=== PATIENT | female | born 1940 | race Caucasian/White ===

== ENCOUNTER 2019-11-12 08:34 | Inpatient (IN) | payer MEDICARE ==
[2019-11-12] MEDS ORDERED: ONDANSETRON 4 MG/2 ML VIAL IVP STA (08:39)
[2019-11-12] MEDS ORDERED: SODIUM CHLORIDE 0.9% 500 ML 500 ML IV STA (08:39)
[2019-11-12 09:05] LABS: Basophils % (A) 0 %; Eosinophils # (A) 0.1 k/uL (0-0.7); Eosinophils % (A) 1 %; HGB 15.3 gm/dL (11.4-16.0); Lymphocytes # (A) 2.5 k/uL (1.0-4.8); Lymphocytes % (A) 30 %; MCH 30.7 pg (25.0-35.0); MCHC 33.2 g/dL (31.0-37.0); MCV 92.5 fL (80.0-100.0); Monocytes # (A) 0.3 k/uL (0-1.0); Monocytes % (A) 4 %; Neutrophils # (A) 5.3 k/uL (1.3-7.7); Neutrophils % (A) 63 %; Platelet Count 121 k/uL (150-450); RBC 4.97 m/uL (3.80-5.40); RDW 13.5 % (11.5-15.5); WBC 8.3 k/uL (3.8-10.6)
[2019-11-12 09:14] LABS: Albumin 4.3 g/dL (3.5-5.0); Calcium 9.1 mg/dL (8.4-10.2); Magnesium 2.1 mg/dL (1.6-2.3); Potassium 4.1 mmol/L (3.5-5.1); Total Bilirubin 0.3 mg/dL (0.2-1.3); Total Protein 6.9 g/dL (6.3-8.2)
--- NOTE | 2019-11-12 11:07 | CT ---
EXAMINATION TYPE: CT abdomen pelvis wo con DATE OF EXAM: 11/12/2019 COMPARISON: None HISTORY: Diarrhea and abdominal pain CT DLP: 393.4 mGycm Automated exposure control for dose reduction was used. TECHNIQUE: Helical acquisition of images was performed from the lung bases through the pelvis. FINDINGS: Left of intravenous and oral contrast limit evaluation of both the hollow and solid viscera . Motion artifact also limits exam. LUNG BASES: Bibasilar dependent subsegmental atelectasis. 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 Tortuosity is noted with severe atherosclerosis. LIVER/GB: Unremarkable unenhanced morphology. Gallbladder surgically absent. Some limitation given sp ray artifact at the left hepatic lobe. PANCREAS: Markedly limited given patient motion and lack of intravenous contrast. SPLEEN: No significant abnormality is seen. ADRENALS: No significant abnormality is seen. KIDNEYS: There are bilateral extrarenal pelvises with very mild prominence of the collecting systems bilaterally. No radiopaque calculus. Urinary bladder is distended containing no internal radiopaque c alculi. FREE AIR: No free air is visualized ADENOPATHY: Limited evaluation given lack of intravenous contrast. No gross greater than 1 cm short axis lymph nodes seen in the abdomen or pelvis. OSSEOUS STRUCTURES: Dextroscoliosis of the lumbar spine is seen. Advanced multilevel degenerative di sc disease of the spine and diffuse osseous demineralization. Multilevel malalignment with grade 1 an terolisthesis of L4 on L5 and minimal retrolisthesis of L1 on L2 and L2 on L3, all likely on a degene rative basis. BOWEL: Long segment bowel wall thickening of the sigmoid colon is seen. Mild pericolonic fat strandi ng. Numerous sigmoid diverticula. Pancolonic diverticulosis. Hyperdensity in the colon from ingested substance. OTHER: Tortuosity of the abdominal aorta with severe atherosclerosis. Infrarenal ectasia measuring 2. 5 cm. Right common iliac artery aneurysmal dilatation measuring 1.8 cm aneurysmal dilatation of the l eft that is mild measuring 1.6 cm. IMPRESSION: 1. ACUTE UNCOMPLICATED SIGMOID DIVERTICULITIS. COLONOSCOPY IS RECOMMENDED AFTER RESOLUTION OF SYMPTOM S TO ENSURE NO UNDERLYING MASS. 2. VERY MILD BILATERAL HYDRONEPHROSIS OF UNKNOWN ETIOLOGY. NO RADIOPAQUE OBSTRUCTING CALCULUS. 3. EXTENSIVE ATHEROSCLEROSIS OF THE ABDOMINAL AORTA AND ITS BRANCHES WITHOUT ANEURYSMAL DILATATION OF THE DESCENDING THORACIC AORTA AND COMMON ILIAC ARTERIES. 4. Extremely limited evaluation of the pancreas. Motion artifact limits the exam.
[2019-11-12 11:13] LABS: Appearance,Urine Clear (Clear); Bacteria,Urine Few /hpf; Bilirubin,Urine Negative (Negative); Blood,Urine Negative (Negative); Color,Urine Yellow; Glucose,Urine (UA) Negative (Negative); Ketones,Urine Negative (Negative); Leukocyte Esterase,Urine Moderate (Negative); Mucus,Urine Rare /hpf; Nitrite,Urine Positive (Negative); PH, Urine 6.5 (5.0-8.0); Protein,Urine 1+ (Negative); RBC,Urine <1 /hpf (0-5); Specific Gravity,Urine 1.012 (1.001-1.035); Squamous Epithelial Cell,Urine <1 /hpf (0-4); Urobilinogen,Urine <2.0 mg/dL (<2.0); WBC,Urine 20 /hpf (0-5)
[2019-11-12] MEDS ORDERED: cefTRIAXone IN SWFI 1,000 MG/10 ML SYRINGE IVP STA (11:15)
[2019-11-12] MEDS ORDERED: metroNIDAZOLE 500 MG TAB PO STA (11:16)
[2019-11-12] MEDS ORDERED: NALOXONE 0.4 MG/ML 1 ML VIAL IV PRN (11:53)
--- NOTE | 2019-11-12 11:53 | ED ---
Nausea/Vomiting/Diarrhea HPI - General Chief complaint: Nausea/Vomiting/Diarrhea Stated complaint: Diarrhea Time Seen by Provider: 11/12/19 08:35 Source: EMS Mode of arrival: EMS Limitations: no limitations - History of Present Illness Initial comments: Patient is a 78-year-old female with unknown past she presents emergency Department with reported of loose stools. EMS provided the history. They picked her up from a senior apartment after she called for report of loose stools. States that she has chronic loose stools however it has been progress skinny worse over the past day. She has had some bowel incontinence. Denies any melanic stools or hematochezia. Admits to crampy abdominal pain. No fevers or chills. She denies dysuria, hematuria or difficulty voiding. No abnormal vaginal bleeding or discharge. She has not taken any medications for her symptoms. Admits to nausea with one episode of nonbilious, nonbloody vomiting yesterday. Denies having a colonoscopy in the past. Denies any chest pain or shortness of breath. The remainder of the HPI is limited because the patient is extremely hard of hearing - Related Data Home Medications Medication Instructions Recorded Confirmed Atorvastatin [Lipitor] 20 mg PO HS 11/12/19 11/12/19 Glimepiride [Amaryl] 2 mg PO [id number] 11/12/19 11/12/19 Melatonin 3 mg PO HS 11/12/19 11/12/19 Metoprolol Tartrate [Lopressor] 100 mg PO BID 11/12/19 11/12/19 amLODIPine [Norvasc] 10 mg PO DAILY 11/12/19 11/12/19 risperiDONE 0.5 mg PO BID 11/12/19 11/12/19 risperiDONE [RisperDAL] 1 mg PO BID 11/12/19 11/12/19 Allergies Allergy/AdvReac Type Severity Reaction Status Date / Time morphine Allergy Rash/Hives Verified 11/12/19 12:29 Review of Systems ROS Statement: Those systems with pertinent positive or pertinent negative responses have been documented in the HPI. ROS Other: All systems not noted in ROS Statement are negative. Past Medical History Past Medical History: No Reported History History of Any Multi-Drug Resistant Organisms: None Reported Past Surgical History: No Surgical Hx Reported Past Psychological History: No Psychological Hx Reported Smoking Status: Current every day smoker Past Alcohol Use History: None Reported Past Drug Use History: None Reported - Past Family History Father Family Medical History: No Reported History Mother Family Medical History: No Reported History General Exam Limitations: no limitations General appearance: alert, in no apparent distress, other (hard of hearing) Head exam: Present: atraumatic, normocephalic, normal inspection Eye exam: Present: normal appearance, PERRL, EOMI. Absent: scleral icterus, conjunctival injection, periorbital swelling ENT exam: Present: normal exam, mucous membranes moist Neck exam: Present: normal inspection. Absent: tenderness, meningismus, lymphadenopathy Respiratory exam: Present: normal lung sounds bilaterally. Absent: respiratory distress, wheezes, rales, rhonchi, stridor Cardiovascular Exam: Present: regular rate, normal rhythm, normal heart sounds. Absent: systolic murmur, diastolic murmur, rubs, gallop, clicks GI/Abdominal exam: Present: soft, normal bowel sounds. Absent: distended, tenderness, guarding, rebound, rigid Extremities exam: Present: normal inspection, full ROM, normal capillary refill. Absent: tenderness, pedal edema, joint swelling, calf tenderness Back exam: Present: normal inspection Neurological exam: Present: alert, oriented X3, CN II-XII intact Psychiatric exam: Present: normal affect, normal mood Skin exam: Present: warm, dry, intact, normal color. Absent: rash Course Vital Signs 11/12/19 11/12/19 11/12/19 08:37 10:18 12:44 Temperature 97.8 F 97.8 F Pulse Rate 76 76 86 Respiratory 16 16 16 Rate Blood Pressure 179/83 152/98 112/76 O2 Sat by Pulse 98 98 99 Oximetry Medical Decision Making - Medical Decision Making Upon arrival the patient's placed into room 8. A thorough history of physical exam is performed. Provide was established. 500 bolus was provided. I would restudies were performed. Patient was sent for CT of her abdomen and pelvis without contrast because of her acute kidney injury. CBC unremarkable. CMP shows a creatinine of 1.4. Unknown patient's previous creatinine. Urinalysis is positive for nitrates. Moderate leukocyte esterase and 20 white blood cells. Fecal occult is performed and is negative. Rectal exam demonstrates no gross blood. A CT of the patient's abdomen and pelvis demonstrates acute unc omplicated sigmoid diverticulitis. Mild bilateral hydronephrosis. Extensive atherosclerosis of the abdominal aorta. I discussed results the patient. I felt the patient could go home with antibiotics. I did call her son to make sure he be able to pickle maker her prescriptions. When speaking with the son he states that his mother has been unable to take care of herself. She does not shower or eat nutritious meals. He has had a home care nurse coming in to help assist her however he states his been difficult. Patient unable to perform daily activities to the point where he now is concerned for placement of the patient. Because of this I did call discuss case with Dr. Urbano. States the patient is a risk to go home. Patient will be admitted to Dr. Urbano with Dr. Barreto and dialysis social worker consult. Patient is awaiting a bed on the floor - Lab Data Result diagrams: 11/14/19 14:25 11/14/19 14:25 Lab Results 11/12/19 11/12/19 11/12/19 Range/Units 08:52 08:52 08:52 WBC 8.3 (3.8-10.6) k/uL RBC 4.97 (3.80-5.40) m/uL Hgb 15.3 (11.4-16.0) gm/dL Hct 46.0 (34.0-46.0) % MCV 92.5 (80.0-100.0) fL MCH 30.7 (25.0-35.0) pg MCHC 33.2 (31.0-37.0) g/dL RDW 13.5 (11.5-15.5) % Plt Count 121 L (150-450) k/uL Neutrophils % 63 % Lymphocytes % 30 % Monocytes % 4 % Eosinophils % 1 % Basophils % 0 % Neutrophils # 5.3 (1.3-7.7) k/uL Lymphocytes # 2.5 (1.0-4.8) k/uL Monocytes # 0.3 (0-1.0) k/uL Eosinophils # 0.1 (0-0.7) k/uL Basophils # 0.0 (0-0.2) k/uL Sodium 141 (137-145) mmol/L Potassium 4.1 (3.5-5.1) mmol/L Chloride 111 H (98-107) mmol/L Carbon Dioxide 17 L (22-30) mmol/L Anion Gap 13 mmol/L BUN 20 H (7-17) mg/dL Creatinine 1.44 H (0.52-1.04) mg/dL Est GFR (CKD-EPI)AfAm 41 (>60 ml/min/1.73 sqM) Est GFR (CKD-EPI)NonAf 35 (>60 ml/min/1.73 sqM) Glucose 87 (74-99) mg/dL Plasma Lactic Acid Caden 1.8 (0.7-2.0) mmol/L Calcium 9.1 (8.4-10.2) mg/dL Magnesium 2.1 (1.6-2.3) mg/dL Total Bilirubin 0.3 (0.2-1.3) mg/dL AST 42 H (14-36) U/L ALT 32 (4-34) U/L Alkaline Phosphatase 76 (38-126) U/L Total Protein 6.9 (6.3-8.2) g/dL Albumin 4.3 (3.5-5.0) g/dL Lipase 252 (23-300) U/L Urine Color Urine Appearance (Clear) Urine pH (5.0-8.0) Ur Specific [place] (1.001-1.035) Urine Protein (Negative) Urine Glucose (UA) (Negative) Urine Ketones (Negative) Urine Blood (Negative) Urine Nitrite (Negative) Urine Bilirubin (Negative) Urine Urobilinogen (<2.0) mg/dL Ur Leukocyte Esterase (Negative) Urine RBC (0-5) /hpf Urine WBC (0-5) /hpf Ur Squamous Epith Cells (0-4) /hpf Urine Bacteria (None) /hpf Urine Mucus (None) /hpf 11/12/19 Range/Units 10:49 WBC (3.8-10.6) k/uL RBC (3.80-5.40) m/uL Hgb (11.4-16.0) gm/dL Hct (34.0-46.0) % MCV (80.0-100.0) fL MCH (25.0-35.0) pg MCHC (31.0-37.0) g/dL RDW (11.5-15.5) % Plt Count (150-450) k/uL Neutrophils % % Lymphocytes % % Monocytes % % Eosinophils % % Basophils % % Neutrophils # (1.3-7.7) k/uL Lymphocytes # (1.0-4.8) k/uL Monocytes # (0-1.0) k/uL Eosinophils # (0-0.7) k/uL Basophils # (0-0.2) k/uL Sodium (137-145) mmol/L Potassium (3.5-5.1) mmol/L Chloride (98-107) mmol/L Carbon Dioxide (22-30) mmol/L Anion Gap mmol/L BUN (7-17) mg/dL Creatinine (0.52-1.04) mg/dL Est GFR (CKD-EPI)AfAm (>60 ml/min/1.73 sqM) Est GFR (CKD-EPI)NonAf (>60 ml/min/1.73 sqM) Glucose (74-99) mg/dL Plasma Lactic Acid Caden (0.7-2.0) mmol/L Calcium (8.4-10.2) mg/dL Magnesium (1.6-2.3) mg/dL Total Bilirubin (0.2-1.3) mg/dL AST (14-36) U/L ALT (4-34) U/L Alkaline Phosphatase (38-126) U/L Total Protein (6.3-8.2) g/dL Albumin (3.5-5.0) g/dL Lipase (23-300) U/L Urine Color Yellow Urine Appearance Clear (Clear) Urine pH 6.5 (5.0-8.0) Ur Specific [place] 1.012 (1.001-1.035) Urine Protein 1+ H (Negative) Urine Glucose (UA) Negative (Negative) Urine Ketones Negative (Negative) Urine Blood Negative (Negative) Urine Nitrite Positive H (Negative) Urine Bilirubin Negative (Negative) Urine Urobilinogen <2.0 (<2.0) mg/dL Ur Leukocyte Esterase Moderate H (Negative) Urine RBC <1 (0-5) /hpf Urine WBC 20 H (0-5) /hpf Ur Squamous Epith Cells <1 (0-4) /hpf Urine Bacteria Few H (None) /hpf Urine Mucus Rare H (None) /hpf Disposition Clinical Impression: Acute diverticulitis, Acute UTI, Diarrhea Disposition: ADMITTED IP TO THIS HOSP Condition: Stable Is patient prescribed a controlled substance at d/c from ED?: No Decision to Admit Reason: Admit from EC Decision Date: 11/12/19 Decision Time: 11:52
[2019-11-12] MEDS: SODIUM CHLORIDE 0.9% 1,000 ML IV SCH (12:43)
[2019-11-12] MEDS: amLODIPine 10 MG TAB PO SCH (14:51)
--- NOTE | 2019-11-12 15:34 | XR ---
EXAMINATION TYPE: XR chest 2V DATE OF EXAM: 11/12/2019 COMPARISON: CT same date HISTORY: Shortness of breath TECHNIQUE: Frontal and lateral views of the chest are obtained. FINDINGS: There is no focal air space opacity, pleural effusion, or pneumothorax seen. The cardiac silhouette size is within normal limits. Patient is post median sternotomy. Prominent lung volumes c ould be indicative of underlying COPD. There is tortuosity of the descending aorta is dense. The oss eous structures are intact. There is a scoliotic curvature to the spine. IMPRESSION: No acute cardiopulmonary process.
[2019-11-12 15:46] LABS: Basophils % (A) 0 %; Eosinophils # (A) 0.1 k/uL (0-0.7); Eosinophils % (A) 1 %; HGB 14.7 gm/dL (11.4-16.0); Lymphocytes # (A) 2.7 k/uL (1.0-4.8); Lymphocytes % (A) 31 %; MCH 30.8 pg (25.0-35.0); MCHC 33.5 g/dL (31.0-37.0); MCV 91.9 fL (80.0-100.0); Mean Platelet Volume 8.5; Monocytes # (A) 0.4 k/uL (0-1.0); Monocytes % (A) 5 %; Neutrophils # (A) 5.4 k/uL (1.3-7.7); Neutrophils % (A) 62 %; Platelet Count 128 k/uL (150-450); RBC 4.79 m/uL (3.80-5.40); RDW 13.4 % (11.5-15.5); WBC 8.7 k/uL (3.8-10.6)
[2019-11-12 15:52] LABS: Albumin 3.9 g/dL (3.5-5.0); Calcium 8.8 mg/dL (8.4-10.2); Potassium 3.7 mmol/L (3.5-5.1); Total Bilirubin 0.2 mg/dL (0.2-1.3); Total Protein 6.3 g/dL (6.3-8.2)
--- NOTE | 2019-11-12 16:14 | HP ---
HISTORY AND PHYSICAL CHIEF COMPLAINT: Abdominal pain. HISTORY OF PRESENT ILLNESS: This lady probably has dementia, is extremely hard of hearing. She came to the emergency room with a history of abdominal pain and diarrhea. She apparently lives alone and probably could not manage this any longer according to family. She has been incontinent of stool. In the emergency room she had studies including white count of 8300, hematocrit of 46. Electrolytes were normal. BUN was 20 with a creatinine 1.44. The remainder of her labs were unremarkable. She had a CT the abdomen and pelvis which suggested diverticulitis and there was also a suggestion of mild hydronephrosis. She was admitted to the hospital with diagnoses of diverticulitis, urinary tract infection, mild renal failure, failure to thrive and presbycusis. REVIEW OF SYSTEMS: Difficult to obtain due to her presbycusis. She is allergic to MORPHINE. At home she has been on amlodipine, atorvastatin, glimepiride, melatonin, Toprol, and Respirtone. PHYSICAL EXAMINATION: Blood pressure 179/83, pulse 76 and regular, respirations 16 and temperature 97.8. In general she appeared to be well developed, well nourished, and slightly dehydrated. She is very hard of hearing. Head, ears, eyes, nose, mouth, and throat were normal. Carotids were normal. Chest is clear to auscultation. She had a faint grade 1/2 systolic ejection murmur. Abdomen is soft and nontender and there are no masses. Extremities were normal. Neurologically she seemed to be intact. IMPRESSION: 1. Diarrhea. 2. Diverticulitis. 3. Urinary tract infection. 4. Hypertension. 5. Mild renal failure. 6. Presbycusis. 7. General debility and failure to thrive. PLAN: 1. Bed rest. 2. IV fluids. 3. For IV antibiotics. 4. Work on discharge planning. MMODL / IJN: [id number] /
[2019-11-12] MEDS: metroNIDAZOLE-NS PMX 500 MG in SALINE 1 100ML.BAG IVPB SCH ×2 (16:52→21:15)
[2019-11-12 17:20] LABS: Glucose,Whole Blood 111 mg/dL (75-99)
[2019-11-12] MEDS: INSULIN ASPART (NovoLOG) 100 UNIT/ML VIAL SQ SCH ×2 (17:34→20:46)
[2019-11-12 20:32] LABS: Glucose,Whole Blood 73 mg/dL (75-99)
[2019-11-12] MEDS: METOPROLOL TARTRATE 50 MG TAB PO SCH (21:15)
[2019-11-13] MEDS: SODIUM CHLORIDE 0.9% 1,000 ML IV SCH ×2 (04:24→14:48)
[2019-11-13 07:38] LABS: Basophils % (A) 0 %; Eosinophils # (A) 0.2 k/uL (0-0.7); Eosinophils % (A) 2 %; HCT 44.8 % (34.0-46.0); HGB 13.8 gm/dL (11.4-16.0); Lymphocytes # (A) 2.6 k/uL (1.0-4.8); Lymphocytes % (A) 31 %; MCHC 30.9 g/dL (31.0-37.0); MCV 93.8 fL (80.0-100.0); Mean Platelet Volume 8.7; Monocytes # (A) 0.5 k/uL (0-1.0); Monocytes % (A) 6 %; Neutrophils % (A) 59 %; Platelet Count 123 k/uL (150-450); RBC 4.77 m/uL (3.80-5.40); RDW 13.5 % (11.5-15.5); WBC 8.5 k/uL (3.8-10.6)
[2019-11-13 07:39] LABS: Glucose,Whole Blood 123 mg/dL (75-99)
[2019-11-13] MEDS: INSULIN ASPART (NovoLOG) 100 UNIT/ML VIAL SQ SCH ×4 (07:44→22:23)
[2019-11-13 07:50] LABS: Calcium 8.6 mg/dL (8.4-10.2); Potassium 4.9 mmol/L (3.5-5.1)
[2019-11-13] MEDS: amLODIPine 10 MG TAB PO SCH (08:34)
[2019-11-13] MEDS: METOPROLOL TARTRATE 50 MG TAB PO SCH ×2 (08:34→21:45)
[2019-11-13] MEDS: metroNIDAZOLE-NS PMX 500 MG in SALINE 1 100ML.BAG IVPB SCH ×3 (09:40→21:45)
[2019-11-13 11:16] LABS: Glucose,Whole Blood 152 mg/dL (75-99)
--- NOTE | 2019-11-13 11:33 | CONS ---
CONSULTATION DATE OF DICTATION: November 13, 2019. REQUESTING PHYSICIAN: Dr. Urbano. REASON FOR CONSULTATION: Abdominal pain and diarrhea. HISTORY OF PRESENT ILLNESS: The patient is a 78-year-old pleasant white female who has severe hearing loss, came to the emergency room complaining of abdominal pain and diarrhea. She states that she has been having 3-4 loose watery bowel movements for the last one month duration. For the last 2 days, she started having abdominal pain mostly in the left lower quadrant area and she came into the emergency room and she had a CT of the abdomen and pelvis done that showed changes consistent with acute diverticulitis. She was started on broad- spectrum antibiotics. This morning she still has some pain, but overall she is feeling better. She wants to go home. She denies any recent travel history. No recent antibiotic use. She does not have any nocturnal diarrhea. No recent weight loss. No rectal bleeding or melena. She does not recall ever having a colonoscopy in the past. PAST MEDICAL HISTORY: Hypertension, hyperlipidemia, diabetes mellitus, and anxiety/depression. Significant for severe hearing loss. PAST SURGICAL HISTORY: Unremarkable. MEDICATIONS: At home: Risperdal, Norvasc, Lopressor, melatonin, Amaryl, and Lipitor. ALLERGIES: MORPHINE. SOCIAL HISTORY: Chronic smoker. No alcohol use. FAMILY HISTORY: Unremarkable. REVIEW OF SYMPTOMS: Cardiopulmonary: No chest pain or shortness of breath. GENITOURINARY: No dysuria or hematuria. MUSCULOSKELETAL unremarkable. SKIN unremarkable. ENDOCRINE unremarkable. NEUROLOGY unremarkable. ENT/vision unremarkable. CONSTITUTIONAL: No recent weight loss. No fever, chills, night sweats. PHYSICAL EXAMINATION: She appears comfortable no apparent distress. VITAL SIGNS: Stable. Blood pressure is 156/73, pulse is 60, temperature 98. HEENT examination unremarkable. Conjunctivae pink. Sclerae anicteric. Oral cavity no lesions. NECK: No JVD or lymph node enlargement. CHEST: Clear to auscultation. HEART: Regular rate and rhythm. ABDOMEN: Soft, it was nontender. Nondistended. There was mild tenderness in the left lower quadrant area. Rest of the abdomen was benign. Bowel sounds are positive. EXTREMITIES: No pedal edema. SKIN no rashes. NEUROLOGIC: Alert and oriented x3. No focal deficits. LABS: WBC 8.7, hemoglobin 14.7, platelets 128. Basic metabolic panel is within normal limits. BUN is 18, creatinine 1.31. Stool occult blood was negative. CT of the abdomen and pelvis done in the emergency room yesterday did show uncomplicated sigmoid diverticulitis, mild bilateral hydronephrosis, extensive atherosclerosis of the abdominal aorta. IMPRESSION: 1. This is a patient who presents to the hospital with abdominal pain for the last 3 days duration, mostly in the left lower quadrant area and CT scan showed evidence of acute uncomplicated sigmoid diverticulitis presently on antibiotics and doing better. 2. Chronic diarrhea for the last one month duration. She has been having 3-4 loose bowel movements daily. No rectal bleeding or melena. Never had a colonoscopy in the past. RECOMMENDATIONS: 1. We will obtain stool studies for C difficile toxin and ova parasites and cultures. 2. Continue broad-spectrum antibiotics for acute sigmoid diverticulitis. 3. If the workup is negative, we will consider a colonoscopy on outpatient basis in 2- 3 weeks following discharge from the hospital. The plan was discussed with the patient. She is agreeable to it. Thank you for this consultation. BABITA / TALONN: [id number] /
--- NOTE | 2019-11-13 14:00 | PN ---
PROGRESS NOTE CHIEF COMPLAINT: Abdominal pain, diarrhea, stool incontinence, and failure to thrive. HISTORY OF PRESENT ILLNESS: This lady is doing fairly well. Her vital signs appear normal. She has had no fever or chills. She is passing stool and she has had no nausea, vomiting, or any other complaints. PHYSICAL EXAMINATION: Chest is clear. Cardiac exam is normal. Abdomen is soft and nontender and there are no masses. IMPRESSION: 1. Abdominal pain. 2. Diarrhea. 3. Presbycusis. 4. Failure to thrive. PLAN: Continue on current program and tomorrow Immigration Law Specialist and Discharge Planning will get involved. MMODL / IJN: [id number] /
[2019-11-13 16:52] LABS: Glucose,Whole Blood 95 mg/dL (75-99)
[2019-11-13 22:12] LABS: Glucose,Whole Blood 83 mg/dL (75-99)
[2019-11-14] MEDS: SODIUM CHLORIDE 0.9% 1,000 ML IV SCH ×2 (04:11→16:10)
[2019-11-14 07:03] LABS: Glucose,Whole Blood 122 mg/dL (75-99)
[2019-11-14] MEDS: INSULIN ASPART (NovoLOG) 100 UNIT/ML VIAL SQ SCH ×4 (07:23→20:54)
[2019-11-14] MEDS: amLODIPine 10 MG TAB PO SCH (08:43)
[2019-11-14] MEDS: METOPROLOL TARTRATE 50 MG TAB PO SCH ×2 (08:43→21:15)
[2019-11-14] MEDS: metroNIDAZOLE-NS PMX 500 MG in SALINE 1 100ML.BAG IVPB SCH ×3 (10:12→21:16)
[2019-11-14 12:03] LABS: Hemoglobin A1C 5.2 % (4.0-6.0)
[2019-11-14 12:46] LABS: Glucose,Whole Blood 119 mg/dL (75-99)
[2019-11-14] MEDS ORDERED: traMADol 50 MG TAB PO PRN (13:25)
[2019-11-14 14:48] LABS: Basophils # (A) 0.1 k/uL (0-0.2); Basophils % (A) 1 %; Eosinophils # (A) 0.2 k/uL (0-0.7); Eosinophils % (A) 2 %; HCT 44.8 % (34.0-46.0); HGB 14.9 gm/dL (11.4-16.0); Lymphocytes # (A) 3.2 k/uL (1.0-4.8); Lymphocytes % (A) 38 %; MCH 31.3 pg (25.0-35.0); MCHC 33.2 g/dL (31.0-37.0); MCV 94.2 fL (80.0-100.0); Mean Platelet Volume 8.6; Monocytes # (A) 0.4 k/uL (0-1.0); Monocytes % (A) 5 %; Neutrophils # (A) 4.6 k/uL (1.3-7.7); Neutrophils % (A) 54 %; Platelet Count 132 k/uL (150-450); RBC 4.76 m/uL (3.80-5.40); RDW 13.6 % (11.5-15.5); WBC 8.6 k/uL (3.8-10.6)
[2019-11-14 14:52] LABS: Albumin 3.7 g/dL (3.5-5.0); Potassium 4.2 mmol/L (3.5-5.1); Total Bilirubin 0.3 mg/dL (0.2-1.3); Total Protein 6.2 g/dL (6.3-8.2)
--- NOTE | 2019-11-14 15:34 | PN ---
PROGRESS NOTE DATE OF DICTATION: 11/14/2019 This patient is a 78-year-old pleasant white female admitted to the hospital with chronic diarrhea and abdominal pain. She has continued to have 3-4 loose bowel movements daily. She had a CT scan at the time of admission to the hospital that showed evidence of left-sided diverticulitis, on empiric antibiotics with ceftriaxone and metronidazole. Her abdominal pain has resolved. She denies any new symptoms. PHYSICAL EXAMINATION: Appears comfortable. No apparent distress. VITAL SIGNS: Stable. Blood pressure 155/70, pulse rate 61, temperature 98.1. HEENT examination unremarkable. Conjunctivae pink. Sclerae anicteric. Oral cavity no lesions. NECK: No JVD or lymph node enlargement. CHEST: Clear to auscultation. HEART: Regular rate and rhythm. ABDOMEN: Soft. Bowel sounds are positive. No organomegaly. EXTREMITIES: No pedal edema. SKIN: No rashes. NEUROLOGIC: Alert and oriented x3. No focal deficits. LABS: Labs are within normal limits. WBC 8.5, hemoglobin 13.8, platelets 123. Rest of the labs are within normal limits. BUN 20, creatinine 1.29. IMPRESSION: 1. Chronic diarrhea for the last one month's duration. The patient has 3-4 loose watery bowel movements daily. Stool studies were requested, which are still pending at the time of this dictation. 2. Acute sigmoid diverticulitis, on broad-spectrum antibiotics. RECOMMENDATIONS: 1. Antibiotics. 2. Advance diet as tolerated. 3. Patient can be discharged home, and she was advised to follow up in the office in 2 weeks from now and we will consider an outpatient colonoscopy. Thank you for this consultation. MMODL / IJN: [id number] /
[2019-11-14 17:14] LABS: Glucose,Whole Blood 144 mg/dL (75-99)
[2019-11-14 20:25] LABS: Glucose,Whole Blood 94 mg/dL (75-99)
--- NOTE | 2019-11-14 21:49 | PN ---
PROGRESS NOTE DATE OF SERVICE: 11/14/2019 CHIEF COMPLAINT: Diverticulitis and failure to thrive with presbycusis. HISTORY OF PRESENT ILLNESS: This lady has started to have a little bit more discomfort in the abdomen. She is being followed by Gastroenterology. If she continues to have further difficulty, she may require endoscopy. PHYSICAL EXAMINATION: Chest is clear. Cardiac exam is normal. Abdomen is soft and she is slightly tender in the lower abdomen without any masses. Bowel sounds are present. IMPRESSION: 1. Diverticulitis. 2. General debility. PLAN: 1. Analgesics will be started. 2. Continue with IV fluids and antibiotics. 3. Continue to follow with GI. When she is discharged, she will be going to an ECF. MMODL / IJN: [id number] /
--- NOTE | 2019-11-15 01:11 | P.CONS ---
History of Present Illness - Reason for Consult Consult date: 11/14/19 diverticulitis and UTI Requesting physician: Hadley Urbano - Chief Complaint loose stools and diarrhea x few days - History of Present Illness Patient is a 78-year-old female presenting to the ER at [facility] on 11 November with a chief complaints of loose stools patient was brought into the ER by EMS from the scene department the patient complaining of loose stools that have been progressively getting worse for the last few days before presented to the hospital patient denies having hematochezia she is complaining of abdominal pain mostly crampy in nature some nausea but no vomiting and no high-grade fever with the symptom the patient has been evaluated by the ER physician on arrival to the ER the patient has been afebrile she did have a normal white count urine was mildly positive kincaid PCR was negative urine culture has been positive for E. coli there is a sensitive pathogen blood culture has been negative stool cultures currently pending patient did have a CT of abdominal pelvis which shows acute uncomplicated sigmoid diverticulitis mild bilateral hydronephrosis and extensive atherosclerosis of the abdominal aorta patient has been treated with Rocephin and Flagyl infectious disease was consulted today for further management of antibiotic therapy. Patient is very hard of hearing most information has been obtained from review the chart and writing on a piece of paper to ask questions Review of Systems Positive point has been mentioned in HPI rest of the systems are negative Past Medical History Past Medical History: Diabetes Mellitus, Hyperlipidemia, Hypertension History of Any Multi-Drug Resistant Organisms: None Reported Past Surgical History: No Surgical Hx Reported Past Anesthesia/Blood Transfusion Reactions: No Reported Reaction Past Psychological History: No Psychological Hx Reported Smoking Status: Current every day smoker Past Alcohol Use History: None Reported Past Drug Use History: None Reported - Past Family History Father Family Medical History: No Reported History Mother Family Medical History: No Reported History Medications and Allergies Home Medications Medication Instructions Recorded Confirmed Type Atorvastatin [Lipitor] 20 mg PO HS 11/12/19 11/12/19 History Glimepiride [Amaryl] 2 mg PO [id number] 11/12/19 11/12/19 History Melatonin 3 mg PO HS 11/12/19 11/12/19 History Metoprolol Tartrate [Lopressor] 100 mg PO BID 11/12/19 11/12/19 History amLODIPine [Norvasc] 10 mg PO DAILY 11/12/19 11/12/19 History risperiDONE 0.5 mg PO BID 11/12/19 11/12/19 History risperiDONE [RisperDAL] 1 mg PO BID 11/12/19 11/12/19 History Allergies Allergy/AdvReac Type Severity Reaction Status Date / Time morphine Allergy Rash/Hives Verified 11/12/19 12:29 Physical Exam Vitals: Vital Signs Temp Pulse Resp BP Pulse Ox 11/14/19 11:50 98.4 F 63 20 191/93 97 11/14/19 07:00 98.1 F 61 14 155/70 98 11/14/19 02:00 97.8 F 52 L 20 132/75 100 11/14/19 00:00 55 L 20 11/13/19 20:00 97.5 F L 55 L 20 158/75 97 Intake and Output 11/13/19 11/14/19 11/14/19 22:59 06:59 14:59 Intake Total 540 240 Balance 540 240 Intake: Oral 540 240 Other: # Voids 2 2 1 GENERAL DESCRIPTION: Elderly female lying in bed, no distress. No tachypnea or accessory muscle of respiration use. HEENT: Shows Pallor , no scleral icterus. Oral mucous membrane is dry. NECK: Trachea central, no thyromegaly. LUNGS: Unlabored breathing. Clear to auscultation anteriorly. No wheeze or crackle. HEART: S1, S2, regular rate and rhythm. ABDOMEN: Soft, no tenderness , guarding or rigidity EXTREMITIES: No edema of feet. SKIN: No rash, no masses palpable. NEUROLOGICAL: The patient is awake, alert, oriented x2, mood and affect normal. Results CBC & Chem 7: 11/14/19 14:25 11/14/19 14:25 Labs: Abnormal Lab Results - Last 24 Hours (Table) 11/14/19 11/14/19 Range/Units 07:00 12:45 POC Glucose (mg/dL) 122 H 119 H (75-99) mg/dL Microbiology - Last 24 Hours (Table) 11/14/19 02:00 Stool Culture - Preliminary Stool 11/12/19 10:49 Urine Culture - Final Urine,Voided Escherichia coli 11/12/19 12:17 Blood Culture - Preliminary Blood No Growth after 24 hours Assessment and Plan Assessment: 1-patient presented to hospital predominantly with loose stools and some crampy abdominal pain this patient CT has been suggestive of uncomplicated diverticulitis will require further intervention gram-negative both aerobes and anaerobes 2-positive UA likely asymptomatic urine tract infection urine has been finalized with E. coli (1) Acute UTI Current Visit: Yes Status: Acute Code(s): N39.0 - URINARY TRACT INFECTION, SITE NOT SPECIFIED SNOMED Code(s): 231512904 (2) Acute diverticulitis Current Visit: Yes Status: Acute Code(s): K57.92 - DVTRCLI OF INTEST, PART UNSP, W/O PERF OR ABSCESS W/O BLEED SNOMED Code(s): 596469894 Plan: 1-we will adjust Rocephin to 2 g daily and continue Flagyl 2-gentle IV fluid 3-the patient clinically improved plan to finish therapy with oral antibiotics We will follow on clinical condition and cultures to further adjust medication if needed Thank you for this consultation we will follow the patient along with you Time with Patient: Greater than 30
[2019-11-15 06:40] LABS: Glucose,Whole Blood 107 mg/dL (75-99)
[2019-11-15] MEDS: amLODIPine 10 MG TAB PO SCH (09:23)
[2019-11-15] MEDS: METOPROLOL TARTRATE 50 MG TAB PO SCH ×2 (09:23→21:30)
[2019-11-15] MEDS: INSULIN ASPART (NovoLOG) 100 UNIT/ML VIAL SQ SCH ×4 (09:38→21:30)
[2019-11-15] MEDS: metroNIDAZOLE-NS PMX 500 MG in SALINE 1 100ML.BAG IVPB SCH (10:20)
[2019-11-15] MEDS ORDERED: CEPHALEXIN 500 MG CAP PO SCH (13:00)
[2019-11-15 14:15] LABS: Glucose,Whole Blood 82 mg/dL (75-99)
--- NOTE | 2019-11-15 16:44 | PN ---
PROGRESS NOTE DATE OF SERVICE: 11/15/2019 REASON FOR FOLLOWUP: 1. Diverticulitis. 2. UTI. INTERVAL HISTORY: The patient is currently afebrile. Patient is feeling better. Breathing comfortably. Denies having any abdominal pain. No nausea, no vomiting. Tolerating her diet and did have one loose stool. PHYSICAL EXAMINATION: Blood pressure 150/53 with a pulse of 50, temperature 99.3. She is 99% on room air. General description is an elderly female, up in the bed in no distress. RESPIRATORY SYSTEM: Unlabored breathing, clear to auscultation anteriorly. HEART: S1, S2. Regular rate and rhythm. ABDOMEN: Soft, no tenderness. LABS: No new labs have been obtained today. Stool culture so far pending. Blood culture negative. Urine with E coli. DIAGNOSTIC IMPRESSION AND PLAN: Patient admitted to hospital with diarrhea. Also did have a positive UA. A CT has been suggestive of diverticulitis, uncomplicated. Patient seemed to have shown overall improvement on Rocephin and Flagyl. Antibiotic switched to Keflex for other recommend Ceftin or Omnicef for better gram-negative coverage than the Keflex about 7-10 days to finish a course of therapy along with oral Flagyl. Continue supportive care. MMODL / IJN: [id number] /
[2019-11-15] MEDS: metroNIDAZOLE 500 MG TAB PO SCH ×2 (16:56→21:29)
[2019-11-15 17:45] LABS: Glucose,Whole Blood 131 mg/dL (75-99)
[2019-11-15] MEDS: SODIUM CHLORIDE 0.9% 1,000 ML IV SCH (20:03)
--- NOTE | 2019-11-15 20:59 | PN ---
PROGRESS NOTE CHIEF COMPLAINT: Confusion, mental status changes, and diverticulitis with urinary tract infection. HISTORY OF PRESENT ILLNESS: This lady is doing well. The family is making arrangements for her to be discharged tomorrow. PHYSICAL EXAMINATION: She is extremely hard of hearing, but she seems awake and alert. Color is good. Chest is clear. Cardiac exam is normal. Abdomen is soft, nontender. IMPRESSION: 1. Diverticulitis. 2. Urinary tract infection. 3. Failure to thrive. 4. Dementia. 5. Presbycusis. PLAN: Probably discharge tomorrow. MMODL / IJN: [id number] /
[2019-11-15] MEDS ORDERED: metroNIDAZOLE 500 MG TAB PO SCH (21:00)
[2019-11-15 21:17] LABS: Glucose,Whole Blood 148 mg/dL (75-99)
[2019-11-15] MEDS: CEFDINIR 300 MG CAP PO SCH (21:29)
--- NOTE | 2019-11-16 02:27 | PN ---
PROGRESS NOTE DATE OF DICTATION: 11/15/2019 Patient is a 78-year-old pleasant white female who is very hard of hearing, admitted to the hospital with diarrhea of one month duration. She is presently on antibiotics for acute sigmoid diverticulitis. She is doing better. She had 2 loose bowel movements last night, but one soft bowel movement this morning. She denies any abdominal pain. No nausea. No vomiting. PHYSICAL EXAMINATION: On physical examination, appears comfortable, no apparent distress. Vital signs are stable. Blood pressure 115/53, pulse rate 53, temperature 99.3. HEENT EXAMINATION: Unremarkable. Conjunctivae pink. Sclerae anicteric. Oral cavity, no lesions. NECK: No JVD or lymph node enlargement. CHEST: Clear to auscultation. HEART: Regular rate and rhythm. ABDOMEN: Soft. Bowel sounds are positive. No organomegaly. EXTREMITIES: No pedal edema. NEURO: Alert and oriented x3. No focal deficits. LABS: WBC 8.6, hemoglobin 14.9, platelets 132. Basic metabolic panel is within normal limits. IMPRESSION: 1. Acute sigmoid diverticulitis on broad-spectrum antibiotics, doing well. Abdominal pain has resolved. 2. Chronic diarrhea for the last one month duration. Her diarrhea seems to be improving since being in the hospital. On a average, she is having about 2 to 3 soft/loose bowel movements daily. RECOMMENDATIONS: 1. Continue antibiotics. 2. She can be discharged to rehab today or tomorrow. 3. The patient was advised to follow up in the office in 2 to 3 weeks and will perform an outpatient colonoscopy at this time. The plan was discussed with her. She is agreeable to it. Thank you for this consultation. MMODL / IJN: [id number] /
[2019-11-16 06:06] LABS: Glucose,Whole Blood 107 mg/dL (75-99)
[2019-11-16] MEDS: INSULIN ASPART (NovoLOG) 100 UNIT/ML VIAL SQ SCH ×4 (06:31→21:20)
[2019-11-16] MEDS: SODIUM CHLORIDE 0.9% 1,000 ML IV SCH ×2 (07:38→23:09)
[2019-11-16] MEDS: metroNIDAZOLE 500 MG TAB PO SCH ×3 (10:51→21:21)
[2019-11-16] MEDS: CEFDINIR 300 MG CAP PO SCH ×2 (10:52→21:13)
[2019-11-16 12:53] LABS: Glucose,Whole Blood 87 mg/dL (75-99)
--- NOTE | 2019-11-16 14:40 | PN ---
PROGRESS NOTE DATE OF SERVICE: 11/16/2019 REASON FOR FOLLOWUP: Acute myeloid colitis and UTI. INTERVAL HISTORY: The patient is currently afebrile, patient is breathing comfortably. Denies having any chest pain or shortness of breath or cough. No abdominal pain and diarrhea has resolved. PHYSICAL EXAMINATION: Blood pressure 155/72 with a pulse of 58, temperature 98.2, she is 97% on room air. Genera description is a elderly female, lying in bed in no distress. RESPIRATORY SYSTEM: Unlabored breathing, clear to auscultation anteriorly. HEART: S1, S2. Regular rate and rhythm. ABDOMEN: Soft, no tenderness. LABS: No new labs have been obtained today. DIAGNOSTIC IMPRESSION AND PLAN: Patient with acute myeloid diverticulitis along with an E coli UTI, currently on Omnicef and Flagyl. Finish therapy with oral Ceftin and Flagyl for about a week and close outpatient followup. MMODL / IJN: [id number] /
[2019-11-16] MEDS: LISINOPRIL 20 MG TAB PO SCH (17:42)
[2019-11-16 18:17] LABS: Glucose,Whole Blood 90 mg/dL (75-99)
--- NOTE | 2019-11-16 18:49 | PN ---
PROGRESS NOTE CHIEF COMPLAINT: Urinary tract infection, diverticulitis and presbycusis. HISTORY OF PRESENT ILLNESS: This lady is doing well and was supposed to be discharged to a detention in [place], but she did not qualify for skilled care. This will be discussed with the family, who will try to make some other arrangements. PHYSICAL EXAMINATION: Her chest is clear. Cardiac exam is normal. Abdomen is soft, nontender. IMPRESSION: 1. Diverticulitis. 2. Urinary tract infection. 3. Presbycusis. 4. Failure to thrive and general debility. PLAN: Family will work on a different discharge plan. MMODL / IJN: [id number] /
[2019-11-16 21:13] LABS: Glucose,Whole Blood 161 mg/dL (75-99)
--- NOTE | 2019-11-16 22:46 | PN ---
PROGRESS NOTE DATE OF DICTATION: 11/16/2019 This patient is a 78-year-old pleasant white female who was admitted to the hospital with acute sigmoid diverticulitis as well as diarrhea for one month's duration. She is on antibiotic, doing better. Diarrhea is also improving; she had only one bowel movement last night. PHYSICAL EXAMINATION: Appears comfortable. No apparent distress. Vital signs are stable. Blood pressure is 128/69, pulse rate 57 and temperature 98.2. HEENT examination unremarkable. Conjunctivae pink. Sclerae anicteric. Oral cavity no lesions. NECK: No JVD or lymph node enlargement. CHEST: Clear to auscultation. HEART: Regular rate and rhythm. ABDOMEN: Soft. Bowel sounds are positive. No organomegaly. EXTREMITIES: No pedal edema. NEUROLOGIC: She is alert and oriented x3. No focal deficits. LABS: Labs from today: none available. IMPRESSION: 1. Acute sigmoid diverticulitis, on antibiotics and doing well. 2. Chronic diarrhea of one month's duration, which is also improving. RECOMMENDATIONS: 1. Continue antibiotics. 2. Discharge home tomorrow. 3. Follow up in the office in 2 weeks. 4. Colonoscopy on an outpatient basis. Thank you for this consultation. MMODL / IJN: [id number] /
[2019-11-17 06:39] LABS: Glucose,Whole Blood 101 mg/dL (75-99)
[2019-11-17] MEDS: INSULIN ASPART (NovoLOG) 100 UNIT/ML VIAL SQ SCH ×2 (06:40→17:33)
[2019-11-17] MEDS: metroNIDAZOLE 500 MG TAB PO SCH ×2 (09:06→17:33)
[2019-11-17] MEDS: CEFDINIR 300 MG CAP PO SCH ×2 (09:06→17:33)
[2019-11-17] MEDS: LISINOPRIL 20 MG TAB PO SCH (09:07)
[2019-11-17 12:01] LABS: Glucose,Whole Blood 84 mg/dL (75-99)
[2019-11-17 12:55] VITALS: BP 129/82; PULSE 65; RESP 16; TEMP 98.2
--- NOTE | 2019-11-17 14:20 | PN ---
PROGRESS NOTE DATE OF SERVICE: 11/17/2019 REASON FOR FOLLOWUP: Diverticulitis and UTI. INTERVAL HISTORY: The patient is currently afebrile. The patient is breathing comfortably. The patient denies having any chest pain, no shortness of breath or cough. No abdominal pain or diarrhea. PHYSICAL EXAMINATION: Blood pressure 154/76, pulse of 86, temperature 98.1, she is 98% on room air. General description is an elderly female, lying in bed in no distress. RESPIRATORY SYSTEM: Unlabored breathing, clear to auscultation anteriorly. HEART: S1, S2. Regular rate and rhythm. ABDOMEN: Soft, no tenderness. LABS: No new labs have been obtained today. DIAGNOSTIC IMPRESSION AND PLAN: Patient with acute MD diverticulitis in addition to the UTI overall improvement. Currently on Omnicef and Flagyl to continue with Santyl and Flagyl for about a week to finish course of therapy. Continue supportive care. MMODL / IJN: [id number] /
--- NOTE | 2019-11-18 09:16 | DS ---
DISCHARGE SUMMARY CHIEF COMPLAINT: Abdominal pain and presbycusis. History of present illness, physical exam, laboratory studies, and course in the hospital of already been assessed. She was was to have been discharged yesterday, but she was not approved for skilled care. Family was making arrangements to take her home and will arrange home care. Final diagnoses are the same. MMODL / IJN: [id number] /
== END 2019-11-17 17:25 | disposition home health service (06) | DRG 392 ==
LOC: EC 08:34 → 4SSUR 11:56 → 6PED 11-14 11:15
PROVIDERS: ADMIT Family Medicine; ATTEND Family Medicine
DX: K57.32 Diverticulitis of large intestine without perforation or abscess without bleeding (principal); N13.6 Pyonephrosis; N17.9 Acute kidney failure, unspecified; F17.210 Nicotine dependence, cigarettes, uncomplicated; E11.9 Type 2 diabetes mellitus without complications; E78.5 Hyperlipidemia, unspecified; F03.90 Unspecified dementia, unspecified severity, without behavioral disturbance, psychotic disturbance, mood disturbance, and anxiety; H91.10 Presbycusis, unspecified ear; I10 Essential (primary) hypertension; F41.9 Anxiety disorder, unspecified; I70.0 Atherosclerosis of aorta; F32.9 Major depressive disorder, single episode, unspecified; K52.9 Noninfective gastroenteritis and colitis, unspecified; B96.20 Unspecified Escherichia coli [E. coli] as the cause of diseases classified elsewhere; R62.7 Adult failure to thrive; Z79.84 Long term (current) use of oral hypoglycemic drugs; Z79.899 Other long term (current) drug therapy; Z11.59 Encounter for screening for other viral diseases
CPT/HCPCS: 36415; 71046; 74176; 80048; 80053; 81001; 82272; 83036; 83605; 83630; 83690; 83735; 85025; 87040; 87045; 87046; 87077; 87086; 87186; 87635; 96361; 96374; 99285

== ENCOUNTER 2019-11-26 06:07 | Observation (INO) | payer MEDICARE ==
[2019-11-26] MEDS ORDERED: ASPIRIN 81 MG PO STA (06:43)
[2019-11-26] MEDS ORDERED: SODIUM CHLORIDE 0.9% 1,000 ML IV STA ×2 (06:43)
--- NOTE | 2019-11-26 06:48 | ED ---
General Adult HPI - General Chief complaint: Nausea/Vomiting/Diarrhea Stated complaint: Diarrhea Time Seen by Provider: 11/26/19 06:19 Source: patient, family, RN notes reviewed, old records reviewed Mode of arrival: wheelchair Limitations: no limitations, language barrier - History of Present Illness Initial comments: Lisa is a 78-year-old female, with severe hearing loss presents emergency Department today with complaints of diarrhea. She was recently admitted for diverticulitis and urinary tract infection. She reports that she is doing somewhat better when she was discharged home but over the past 2 days become significantly worse. She reports that this morning she had severe diarrhea and made a mess over her home. Patient called her son who brought her in. Patient upon arrival also stated she started to develop chest pain. She has a history of coronary artery disease disease and bypass surgery. Patient states that her "belly lincoln". Patient's son states that she lives alone and they're seeking placement for assisted living or nursing facility as it is dangerous that she is hard of hearing and seems to have a difficult time caring for herself anymore. - Related Data Home Medications Medication Instructions Recorded Confirmed Atorvastatin [Lipitor] 20 mg PO HS 11/12/19 11/12/19 Melatonin 3 mg PO HS 11/12/19 11/12/19 risperiDONE 0.5 mg PO BID 11/12/19 11/12/19 risperiDONE [RisperDAL] 1 mg PO BID 11/12/19 11/12/19 Previous Rx's Medication Instructions Recorded Cefuroxime Axetil [Ceftin] 500 mg PO BID #20 tab 11/15/19 metroNIDAZOLE [Flagyl] 500 mg PO TID #30 tab 11/15/19 Lisinopril [Zestril] 20 mg PO DAILY #30 tab 11/16/19 Allergies Allergy/AdvReac Type Severity Reaction Status Date / Time morphine Allergy Rash/Hives Verified 11/26/19 06:18 Review of Systems ROS Statement: Those systems with pertinent positive or pertinent negative responses have been documented in the HPI. ROS Other: All systems not noted in ROS Statement are negative. Past Medical History Past Medical History: Diabetes Mellitus, Hyperlipidemia, Hypertension History of Any Multi-Drug Resistant Organisms: None Reported Past Surgical History: No Surgical Hx Reported Past Anesthesia/Blood Transfusion Reactions: No Reported Reaction Past Psychological History: No Psychological Hx Reported Smoking Status: Current every day smoker Past Alcohol Use History: None Reported Past Drug Use History: None Reported - Past Family History Father Family Medical History: No Reported History Mother Family Medical History: No Reported History General Exam - General Exam Comments Initial Comments: 78 yo female, no distress. Very hard of hearing, have to write to communicate Limitations: no limitations, language barrier General appearance: alert, in no apparent distress Head exam: Present: atraumatic, normocephalic, normal inspection Eye exam: Present: normal appearance, PERRL, EOMI. Absent: scleral icterus, conjunctival injection, periorbital swelling ENT exam: Present: normal exam, mucous membranes moist Neck exam: Present: normal inspection. Absent: tenderness, meningismus, lymphadenopathy Respiratory exam: Present: normal lung sounds bilaterally. Absent: respiratory distress, wheezes, rales, rhonchi, stridor Cardiovascular Exam: Present: regular rate, normal rhythm, normal heart sounds. Absent: systolic murmur, diastolic murmur, rubs, gallop, clicks GI/Abdominal exam: Present: soft, tenderness (Left lower quadrant tenderness and cramping), normal bowel sounds. Absent: distended, guarding, rebound, rigid Rectal exam: Present: normal inspection, normal rectal tone Extremities exam: Present: normal inspection, full ROM, normal capillary refill. Absent: tenderness, pedal edema, joint swelling, calf tenderness Back exam: Present: normal inspection Neurological exam: Present: alert, oriented X3, CN II-XII intact Psychiatric exam: Present: normal affect, normal mood Skin exam: Present: warm, dry, intact, normal color. Absent: rash Course Vital Signs 11/26/19 06:16 Temperature 97.9 F Pulse Rate 77 Respiratory 24 Rate Blood Pressure 158/75 O2 Sat by Pulse 98 Oximetry EKG Findings - EKG Comments: EKG Findings:: EKG performed at 6:33 AM shows undetermined rhythm, RSR QR in V1 shows right ventricular conduction delay. ST abnormality considering anterolateral ischemia. Ventricular rate is 66 bpm. Was 180 ms. Care instruction is 94 ms. QT QTc is 470/492 ms. Medical Decision Making - Medical Decision Making Patient is a 78 rolled female who persist emergency department today for initial complaints for diarrhea however and she wants exam room Patient started complaining of chest pain. Patient has history her coronary artery disease. Patient's EKG shows some T-wave inversions inferior laterally. Patient's initial troponin is normal. Chest x-ray shows evidence of COPD Patient is a current smoker. She also increased opacity in left lower lung base could further evaluate for developing pneumonia versus malignancy. Patient when she arrived had a large bowel movement and was covered in her stool down her legs and toes. She is currently being treated for diverticulitis with Flagyl. This was done on her last admission to the hospital. Patient's son states that he is also concerned with her able to take care of herself at home and would need some placement to assisted living. At this time patient will be admitted with consult to encourage a cardiology for chest pain as well as Dr. Barreto for persistent diarrhea. - Lab Data Result diagrams: 11/26/19 06:45 11/26/19 06:45 Lab Results 11/26/19 11/26/19 11/26/19 Range/Units 06:45 06:45 06:45 WBC 9.2 (3.8-10.6) k/uL RBC 5.11 (3.80-5.40) m/uL Hgb 15.0 (11.4-16.0) gm/dL Hct 46.2 H (34.0-46.0) % MCV 90.3 (80.0-100.0) fL MCH 29.4 (25.0-35.0) pg MCHC 32.5 (31.0-37.0) g/dL RDW 13.2 (11.5-15.5) % Plt Count 148 L (150-450) k/uL Neutrophils % 66 % Lymphocytes % 26 % Monocytes % 5 % Eosinophils % 1 % Basophils % 1 % Neutrophils # 6.1 (1.3-7.7) k/uL Lymphocytes # 2.4 (1.0-4.8) k/uL Monocytes # 0.5 (0-1.0) k/uL Eosinophils # 0.1 (0-0.7) k/uL Basophils # 0.0 (0-0.2) k/uL PT 10.2 (9.0-12.0) sec INR 1.0 (<1.2) APTT 22.8 (22.0-30.0) sec Sodium 138 (137-145) mmol/L Potassium 4.1 (3.5-5.1) mmol/L Chloride 111 H (98-107) mmol/L Carbon Dioxide 19 L (22-30) mmol/L Anion Gap 8 mmol/L BUN 13 (7-17) mg/dL Creatinine 1.47 H (0.52-1.04) mg/dL Est GFR (CKD-EPI)AfAm 40 (>60 ml/min/1.73 sqM) Est GFR (CKD-EPI)NonAf 34 (>60 ml/min/1.73 sqM) Glucose 71 L (74-99) mg/dL Calcium 9.4 (8.4-10.2) mg/dL Magnesium 2.1 (1.6-2.3) mg/dL Total Bilirubin 0.4 (0.2-1.3) mg/dL AST 38 H (14-36) U/L ALT 21 (4-34) U/L Alkaline Phosphatase 74 (38-126) U/L Troponin I (0.000-0.034) ng/mL NT-Pro-B Natriuret Pep pg/mL Total Protein 6.7 (6.3-8.2) g/dL Albumin 4.1 (3.5-5.0) g/dL Lipase 339 H (23-300) U/L Urine Color Urine Appearance (Clear) Urine pH (5.0-8.0) Ur Specific Otis (1.001-1.035) Urine Protein (Negative) Urine Glucose (UA) (Negative) Urine Ketones (Negative) Urine Blood (Negative) Urine Nitrite (Negative) Urine Bilirubin (Negative) Urine Urobilinogen (<2.0) mg/dL Ur Leukocyte Esterase (Negative) Urine WBC (0-5) /hpf Ur Squamous Epith Cells (0-4) /hpf Hyaline Casts (0-2) /lpf Stool Occult Blood (Negative) 11/26/19 11/26/19 11/26/19 Range/Units 06:45 06:45 06:45 WBC (3.8-10.6) k/uL RBC (3.80-5.40) m/uL Hgb (11.4-16.0) gm/dL Hct (34.0-46.0) % MCV (80.0-100.0) fL MCH (25.0-35.0) pg MCHC (31.0-37.0) g/dL RDW (11.5-15.5) % Plt Count (150-450) k/uL Neutrophils % % Lymphocytes % % Monocytes % % Eosinophils % % Basophils % % Neutrophils # (1.3-7.7) k/uL Lymphocytes # (1.0-4.8) k/uL Monocytes # (0-1.0) k/uL Eosinophils # (0-0.7) k/uL Basophils # (0-0.2) k/uL PT (9.0-12.0) sec INR (<1.2) APTT (22.0-30.0) sec Sodium (137-145) mmol/L Potassium (3.5-5.1) mmol/L Chloride (98-107) mmol/L Carbon Dioxide (22-30) mmol/L Anion Gap mmol/L BUN (7-17) mg/dL Creatinine (0.52-1.04) mg/dL Est GFR (CKD-EPI)AfAm (>60 ml/min/1.73 sqM) Est GFR (CKD-EPI)NonAf (>60 ml/min/1.73 sqM) Glucose (74-99) mg/dL Calcium (8.4-10.2) mg/dL Magnesium (1.6-2.3) mg/dL Total Bilirubin (0.2-1.3) mg/dL AST (14-36) U/L ALT (4-34) U/L Alkaline Phosphatase (38-126) U/L Troponin I <0.012 (0.000-0.034) ng/mL NT-Pro-B Natriuret Pep 260 pg/mL Total Protein (6.3-8.2) g/dL Albumin (3.5-5.0) g/dL Lipase (23-300) U/L Urine Color Urine Appearance (Clear) Urine pH (5.0-8.0) Ur Specific Otis (1.001-1.035) Urine Protein (Negative) Urine Glucose (UA) (Negative) Urine Ketones (Negative) Urine Blood (Negative) Urine Nitrite (Negative) Urine Bilirubin (Negative) Urine Urobilinogen (<2.0) mg/dL Ur Leukocyte Esterase (Negative) Urine WBC (0-5) /hpf Ur Squamous Epith Cells (0-4) /hpf Hyaline Casts (0-2) /lpf Stool Occult Blood Negative (Negative) 06/07/20 Range/Units 07:30 WBC (3.8-10.6) k/uL RBC (3.80-5.40) m/uL Hgb (11.4-16.0) gm/dL Hct (34.0-46.0) % MCV (80.0-100.0) fL MCH (25.0-35.0) pg MCHC (31.0-37.0) g/dL RDW (11.5-15.5) % Plt Count (150-450) k/uL Neutrophils % % Lymphocytes % % Monocytes % % Eosinophils % % Basophils % % Neutrophils # (1.3-7.7) k/uL Lymphocytes # (1.0-4.8) k/uL Monocytes # (0-1.0) k/uL Eosinophils # (0-0.7) k/uL Basophils # (0-0.2) k/uL PT (9.0-12.0) sec INR (<1.2) APTT (22.0-30.0) sec Sodium (137-145) mmol/L Potassium (3.5-5.1) mmol/L Chloride (98-107) mmol/L Carbon Dioxide (22-30) mmol/L Anion Gap mmol/L BUN (7-17) mg/dL Creatinine (0.52-1.04) mg/dL Est GFR (CKD-EPI)AfAm (>60 ml/min/1.73 sqM) Est GFR (CKD-EPI)NonAf (>60 ml/min/1.73 sqM) Glucose (74-99) mg/dL Calcium (8.4-10.2) mg/dL Magnesium (1.6-2.3) mg/dL Total Bilirubin (0.2-1.3) mg/dL AST (14-36) U/L ALT (4-34) U/L Alkaline Phosphatase (38-126) U/L Troponin I (0.000-0.034) ng/mL NT-Pro-B Natriuret Pep pg/mL Total Protein (6.3-8.2) g/dL Albumin (3.5-5.0) g/dL Lipase (23-300) U/L Urine Color Yellow Urine Appearance Clear (Clear) Urine pH 6.5 (5.0-8.0) Ur Specific Otis 1.008 (1.001-1.035) Urine Protein 1+ H (Negative) Urine Glucose (UA) Negative (Negative) Urine Ketones Negative (Negative) Urine Blood Negative (Negative) Urine Nitrite Negative (Negative) Urine Bilirubin Negative (Negative) Urine Urobilinogen <2.0 (<2.0) mg/dL Ur Leukocyte Esterase Trace H (Negative) Urine WBC 1 (0-5) /hpf Ur Squamous Epith Cells <1 (0-4) /hpf Hyaline Casts 1 (0-2) /lpf Stool Occult Blood (Negative) - Radiology Data Radiology results: report reviewed Chest x-ray shows COPD. Increased opacity in left lower lobe may represent early pneumonia. Follow-up to resolution suggested in order to exclude malignancy. CT head and pelvis shows no acute intra-abdominal abnormality. Evidence of scoliosis. Disposition Clinical Impression: Chest pain, Diarrhea, Hard of hearing Disposition: ADMITTED IP TO THIS [facility] Condition: Stable Is patient prescribed a controlled substance at d/c from ED?: No Referrals: Annalee Patrick MD [Primary Care Provider] - 1-2 days Time of Disposition: 08:47
[2019-11-26 06:58] LABS: Basophils % (A) 1 %; Eosinophils # (A) 0.1 k/uL (0-0.7); Eosinophils % (A) 1 %; HCT 46.2 % (34.0-46.0); Lymphocytes # (A) 2.4 k/uL (1.0-4.8); Lymphocytes % (A) 26 %; MCH 29.4 pg (25.0-35.0); MCHC 32.5 g/dL (31.0-37.0); MCV 90.3 fL (80.0-100.0); Mean Platelet Volume 8.4; Monocytes # (A) 0.5 k/uL (0-1.0); Monocytes % (A) 5 %; Neutrophils # (A) 6.1 k/uL (1.3-7.7); Neutrophils % (A) 66 %; Platelet Count 148 k/uL (150-450); RBC 5.11 m/uL (3.80-5.40); RDW 13.2 % (11.5-15.5); WBC 9.2 k/uL (3.8-10.6)
[2019-11-26 07:07] LABS: Albumin 4.1 g/dL (3.5-5.0); Calcium 9.4 mg/dL (8.4-10.2); Magnesium 2.1 mg/dL (1.6-2.3); Potassium 4.1 mmol/L (3.5-5.1); Total Bilirubin 0.4 mg/dL (0.2-1.3); Total Protein 6.7 g/dL (6.3-8.2)
[2019-11-26 07:08] LABS: Partial Thromboplastin Time 22.8 sec (22.0-30.0); Prothrombin Time 10.2 sec (9.0-12.0)
[2019-11-26] MEDS ORDERED: HYDROmorphone 1 MG/ML 1 ML SYRINGE IVP STA (07:15)
--- NOTE | 2019-11-26 07:21 | XR ---
EXAMINATION TYPE: XR KUB , ONE VIEW DATE OF EXAM ORDERED: 11/26/2019 HISTORY: pain. COMPARISON: None. FINDINGS: There is an S-shaped scoliosis convex to the left of the thoracolumbar junction and to the right in the lumbar spine. The abdominal gas pattern is within normal limits. There are nondistended air-filled loops of large a nd small bowel throughout the abdomen. There is no evidence of obstruction or free air. IMPRESSION: 1. NO ACUTE INTRA-ABDOMINAL ABNORMALITY. 2. SCOLIOSIS.
--- NOTE | 2019-11-26 07:23 | XR ---
EXAMINATION TYPE: XR chest 2V DATE OF EXAM: 11/26/2019 HISTORY: Chest Pain. REFERENCE: Previous study dated 11/12/2019. FINDINGS: There has been a midline sternotomy. The lungs are overinflated. There is a density in the posterior aspect of the left lung. This was par tially present previously. This may represent a small patch of pneumonia. Underlying mass lesion woul d need to BE excluded. The lungs are otherwise clear. Pleural space are clear. The heart is not enlar ged.. IMPRESSION: 1. COPD. 2. INCREASED OPACITY IN THE LEFT LOWER LOBE MAY REPRESENT EARLY PNEUMONIA. FOLLOW-UP TO RESOLUTION WO ULD BE SUGGESTED IN ORDER TO EXCLUDE MALIGNANCY.
[2019-11-26 08:00] LABS: Appearance,Urine Clear (Clear); Bilirubin,Urine Negative (Negative); Blood,Urine Negative (Negative); Color,Urine Yellow; Glucose,Urine (UA) Negative (Negative); Hyaline Casts,Urine 1 /lpf (0-2); Ketones,Urine Negative (Negative); Leukocyte Esterase,Urine Trace (Negative); Nitrite,Urine Negative (Negative); PH, Urine 6.5 (5.0-8.0); Protein,Urine 1+ (Negative); Specific Gravity,Urine 1.008 (1.001-1.035); Squamous Epithelial Cell,Urine <1 /hpf (0-4); Urobilinogen,Urine <2.0 mg/dL (<2.0); WBC,Urine 1 /hpf (0-5)
[2019-11-26] MEDS ORDERED: HYDROmorphone 1 MG/ML 1 ML SYRINGE IVP PRN (08:48)
[2019-11-26] MEDS ORDERED: IBUPROFEN 400 MG TAB PO PRN (08:48)
[2019-11-26] MEDS ORDERED: KETOROLAC 30 MG/ML 1 ML VIAL IVP PRN (08:48)
[2019-11-26] MEDS ORDERED: ACETAMINOPHEN TAB 325 MG TAB PO PRN (08:48)
[2019-11-26] MEDS ORDERED: ONDANSETRON 4 MG/2 ML VIAL IVP PRN (08:48)
[2019-11-26] MEDS ORDERED: NALOXONE 0.4 MG/ML 1 ML VIAL IV PRN (08:48)
[2019-11-26] MEDS ORDERED: NICOTINE 21MG/24HR PATCH TRANSDERM STA (08:50)
[2019-11-26] MEDS ORDERED: SODIUM CHLORIDE 0.9% 1,000 ML IV SCH (09:00)
[2019-11-26] MEDS ORDERED: PANTOPRAZOLE 40 MG/10 ML VIAL IV SCH (09:00)
[2019-11-26 10:33] LABS: Glucose,Whole Blood 58 mg/dL (75-99)
[2019-11-26 10:45] LABS: Glucose,Whole Blood 64 mg/dL (75-99)
[2019-11-26] MEDS: SODIUM CHLORIDE 0.45% 1,000 ML IV SCH ×2 (10:56→19:59)
[2019-11-26 11:00] LABS: Glucose,Whole Blood 97 mg/dL (75-99)
--- NOTE | 2019-11-26 11:30 | P.HPIM ---
History of Present Illness 78-year-old pleasant female came in with compensative diarrhea multiple episodes patient had a similar symptoms and patient was treated for diabetic medicine was discharged home couple days ago patient was also complaining of right lower quadrant abdominal pain patient initially complained of chest pain on the left side of the chest in ER when questioned she denied any chest pain but again she states she may have chest pain. She cannot operate further. Can get much of the history from the patient because of her hearing issues patient may patient is extremely hard of hearing. Patient denied any fever chills patient denied d ysuria. Review of Systems REVIEW OF SYSTEMS: CONSTITUTIONAL: No fever, no malaise, no fatigue. HEENT: No recent visual problems or hearing problems. Denied any sore throat. CARDIOVASCULAR: No chest pain, orthopnea, PND, no palpitations, no syncope. PULMONARY: No shortness of breath, no cough, no hemoptysis. GASTROINTESTINAL: As mentioned in HPI NEUROLOGICAL: No headaches, no weakness, no numbness. HEMATOLOGICAL: Denies any bleeding or petechiae. GENITOURINARY: Denies any burning micturition, frequency, or urgency. MUSCULOSKELETAL/RHEUMATOLOGICAL: Denies any joint pain, swelling, or any muscle pain. ENDOCRINE: Denies any polyuria or polydipsia. The rest of the 14-point review of systems is negative. Past Medical History Past Medical History: Diabetes Mellitus, Hyperlipidemia, Hypertension History of Any Multi-Drug Resistant Organisms: None Reported Past Surgical History: No Surgical Hx Reported Past Anesthesia/Blood Transfusion Reactions: No Reported Reaction Past Psychological History: No Psychological Hx Reported Smoking Status: Current every day smoker Past Alcohol Use History: None Reported Past Drug Use History: None Reported - Past Family History Father Family Medical History: No Reported History Mother Family Medical History: No Reported History Medications and Allergies Home Medications Medication Instructions Recorded Confirmed Type Atorvastatin [Lipitor] 20 mg PO HS 11/12/19 11/12/19 History Melatonin 3 mg PO HS 11/12/19 11/12/19 History risperiDONE 0.5 mg PO BID 11/12/19 11/12/19 History risperiDONE [RisperDAL] 1 mg PO BID 11/12/19 11/12/19 History Cefuroxime Axetil [Ceftin] 500 mg PO BID #20 tab 11/15/19 Rx metroNIDAZOLE [Flagyl] 500 mg PO TID #30 tab 11/15/19 Rx Lisinopril [Zestril] 20 mg PO DAILY #30 tab 11/16/19 Rx Allergies Allergy/AdvReac Type Severity Reaction Status Date / Time morphine Allergy Rash/Hives Verified 11/26/19 06:18 Physical Exam Vitals: Vital Signs Temp Pulse Resp BP Pulse Ox 11/26/19 09:42 85 18 147/85 97 11/26/19 09:30 79 17 165/92 97 11/26/19 09:00 81 16 157/98 96 11/26/19 08:30 78 14 188/107 98 11/26/19 08:00 76 12 184/100 97 11/26/19 07:30 75 16 186/102 98 11/26/19 06:16 97.9 F 77 24 158/75 98 Intake and Output 11/25/19 11/26/19 11/26/19 22:59 06:59 14:59 Other: Weight 65.771 kg 65.771 kg PHYSICAL EXAMINATION: GENERAL: The patient is alert and oriented x3, not in any acute distress. Well developed, well nourished. HEENT: Pupils are round and equally reacting to light. EOMI. No scleral icterus. No conjunctival pallor. Normocephalic, atraumatic. No pharyngeal erythema. No thyromegaly. CARDIOVASCULAR: S1 and S2 present. No murmurs, rubs, or gallops. PULMONARY: Chest is clear to auscultation, no wheezing or crackles. ABDOMEN: Soft, nontender, nondistended, normoactive bowel sounds. No palpable organomegaly. MUSCULOSKELETAL: No joint swelling or deformity. EXTREMITIES: No cyanosis, clubbing, or pedal edema. NEUROLOGICAL: Gross neurological examination did not reveal any focal deficits. SKIN: No rashes. Results CBC & Chem 7: 11/26/19 06:45 11/26/19 06:45 Labs: Abnormal Lab Results - Last 24 Hours (Table) 11/26/19 11/26/19 11/26/19 Range/Units 06:45 06:45 07:30 Hct 46.2 H (34.0-46.0) % Plt Count 148 L (150-450) k/uL Chloride 111 H (98-107) mmol/L Carbon Dioxide 19 L (22-30) mmol/L Creatinine 1.47 H (0.52-1.04) mg/dL Glucose 71 L (74-99) mg/dL POC Glucose (mg/dL) (75-99) mg/dL AST 38 H (14-36) U/L Lipase 339 H (23-300) U/L Urine Protein 1+ H (Negative) Ur Leukocyte Esterase Trace H (Negative) 11/26/19 11/26/19 Range/Units 10:31 10:44 Hct (34.0-46.0) % Plt Count (150-450) k/uL Chloride (98-107) mmol/L Carbon Dioxide (22-30) mmol/L Creatinine (0.52-1.04) mg/dL Glucose (74-99) mg/dL POC Glucose (mg/dL) 58 L 64 L (75-99) mg/dL AST (14-36) U/L Lipase (23-300) U/L Urine Protein (Negative) Ur Leukocyte Esterase (Negative) Thrombosis Risk Factor Assmnt - Choose All That Apply Any of the Below Risk Factors Present?: Yes Each Factor Represents 1 point: Abnormal pulmonary function (COPD) Other Risk Factors: Yes Each Risk Factor Represents 3 Points: Age 75 years or older Thrombosis Risk Factor Assessment Total Risk Factor Score: 4 Thrombosis Risk Factor Assessment Level: Moderate Risk Assessment and Plan Plan: -Diarrhea: She'll be tested for C. diff. Can you to IV fluids. Patient will be resumed on Ceftin and metronidazole for her dermatitis patient still has some pain of there. Patient was started on Questran as well -Chest pain probably musculoskeletal cardiology was consulted troponin is negative EKG showed some nonspecific ST-T wave changes on the inferior leads -Acute renal failure secondary to intravascular depletion from diarrhea continue with IV fluids with IV fluids will be changed to 0.545 saline as patient has hyperchloremia and hyperchloremic acidosis next and-noniron gap and work acidosis secondary to hyperchloremia IV fluids in the form of half-normal saline -Chronic kidney disease stage III probably secondary to hypertensive nephrosclerosis. Baseline creatinine around 1.2 -Hyperlipidemia -Continued nicotine use: Counseling was provided -DVT prophylaxis with heparin and GI prophylaxis with Protonix
[2019-11-26 11:38] LABS: Glucose,Whole Blood 126 mg/dL (75-99)
[2019-11-26] MEDS: metroNIDAZOLE 500 MG TAB PO SCH ×2 (15:23→19:56)
[2019-11-26] MEDS: CHOLESTYRAMINE (WITH SUGAR) 4 GM PACKET PO SCH ×2 (15:23→18:45)
[2019-11-26 16:37] LABS: Glucose,Whole Blood 57 mg/dL (75-99)
[2019-11-26 16:50] LABS: Glucose,Whole Blood 65 mg/dL (75-99)
[2019-11-26] MEDS ORDERED: DEXTROSE 50% SYRINGE 50 ML IVP ONE (16:53)
[2019-11-26 17:14] LABS: Glucose,Whole Blood 267 mg/dL (75-99)
[2019-11-26] MEDS: ATORVASTATIN 20 MG TAB PO SCH (19:55)
[2019-11-26] MEDS: MELATONIN 3 MG TABLET PO SCH (19:56)
[2019-11-26] MEDS: HEPARIN SODIUM,PORCINE 5,000 UNIT/ML 1 ML VIAL SQ SCH (19:56)
[2019-11-26 20:08] LABS: Glucose,Whole Blood 60 mg/dL (75-99)
[2019-11-26 20:44] LABS: Glucose,Whole Blood 71 mg/dL (75-99)
[2019-11-26] MEDS ORDERED: CEFUROXIME AXETIL 500 MG PO SCH (21:00)
[2019-11-26] MEDS ORDERED: risperiDONE 0.5 MG TAB PO SCH (21:00)
[2019-11-26] MEDS ORDERED: risperiDONE 1 MG TAB PO SCH (21:00)
[2019-11-26] MEDS ORDERED: MD COMMUNICATION TO PHARMACY 1 EACH MISC PO PRN (22:19)
[2019-11-26] MEDS: CEFDINIR 300 MG CAP PO SCH (23:15)
[2019-11-26] MEDS: DEXTROSE 5%-0.45% NACL 1,000 ML IV SCH (23:15)
[2019-11-27 02:25] LABS: Glucose,Whole Blood 81 mg/dL (75-99)
[2019-11-27 06:09] LABS: Glucose,Whole Blood 102 mg/dL (75-99)
[2019-11-27] MEDS: CEFDINIR 300 MG CAP PO SCH ×2 (07:49→21:50)
[2019-11-27] MEDS: HEPARIN SODIUM,PORCINE 5,000 UNIT/ML 1 ML VIAL SQ SCH ×2 (07:49→21:50)
[2019-11-27] MEDS: metroNIDAZOLE 500 MG TAB PO SCH ×3 (07:49→21:50)
[2019-11-27] MEDS: PANTOPRAZOLE 40 MG TABLET PO SCH (07:50)
[2019-11-27] MEDS: risperiDONE 1 MG TAB PO SCH ×2 (07:56→21:50)
[2019-11-27] MEDS: CHOLESTYRAMINE (WITH SUGAR) 4 GM PACKET PO SCH (11:08)
--- NOTE | 2019-11-27 11:31 | CONS ---
CONSULTATION Mrs. Stafford is a 78-year-old female who presented with abdominal pain and chest discomfort. She was recently discharged from the hospital. The patient is very hard of hearing. I had difficulty getting a history, but she was in the hospital very recently with symptoms of diarrhea and abdominal pain and was diagnosed with sigmoid diverticulitis and diarrhea. The patient could not give me any other history. Her main complaint has been her abdominal discomfort and she has denied any chest discomfort. She has a history of coronary artery disease, status post coronary artery bypass grafting and she has a scar on the right side of the neck that is suggestive carotid endarterectomy, although details of that is not available to me. She has no prior records besides her last admission. Although her review of systems is limited but she denies any dyspnea. She denies any dizziness or palpitation. Her coronary risk factors according to the medication include hypertension, hyperlipidemia, and diabetes. She is a nonsmoker. MEDICATION: Include Risperdal, Lipitor 20 mg daily, , lisinopril 20 mg daily, and Amaryl. REVIEW OF SYSTEMS: Very limited, but predominantly the diarrhea and the abdominal discomfort. PHYSICAL EXAMINATION: She is a 78-year-old female, alert, very hard of hearing, almost deaf. Blood pressure 140/80 with a heart rate in the 70s. HEAD: Normocephalic/ EYES: Sclerae nonicteric. NECK: Good upstroke, no bruit, no venous distention. LUNGS: Clear to auscultation. HEART: Regular rate and rhythm, S1, S2. No S3 with systolic murmur heard at the base. No diastolic murmur, no rub. ABDOMEN: Soft with tenderness on the right upper and lower quadrant. No rebound. Positive bowel sounds, no organomegaly. EXTREMITIES: No edema. LAB DATA: Revealed a troponin of less than 0.012. NT proBNP of 260. BUN and creatinine 13 and 1.47 which was mildly elevated during her admission a week or so ago. Her potassium 4.1. Lipase of 339. Her hemoglobin of 15, white blood cell of 9.2. Her EKG revealed a sinus mechanism, normal axis, early transition with T-wave inversion in leads 3 and AVF. The possibility of posterior myocardial infarction cannot be totally excluded. No EKG is available to me from the previous admission. During her last admission, she had an abdominal and pelvis CT that showed that she is status post cholecystectomy. There is extensive atherosclerosis at [place] of the abdominal aorta and with this mild dilatation of the ascending aorta measuring up to 3.5 cm. IMPRESSION: 1. Abdominal and chest discomfort appears to be more related to her GI tract than cardiac source. There is no clear evidence to suggest acute coronary syndrome. 2. History of coronary artery disease, status post coronary artery bypass grafting, detail or timing on unavailable. 3. Chronic diarrhea. 4. Chronic kidney disease. 5. Hypertension. 6. Hyperlipidemia. 7. Diabetes mellitus. RECOMMENDATION: From the cardiac standpoint, I will obtain echocardiogram with Doppler. Will follow her renal function. The patient states is treated regarding her GI tract. Depending on the results of her echocardiogram, further adjustment of her medical regimen will be done. At this time, I see no evidence of active cardiac issues. Thank you for this consult. Will follow with you. JOSEFAL / TAIWO: [id number] /
[2019-11-27 11:45] LABS: Basophils % (A) 1 %; Eosinophils # (A) 0.1 k/uL (0-0.7); Eosinophils % (A) 2 %; HCT 44.4 % (34.0-46.0); HGB 14.9 gm/dL (11.4-16.0); Lymphocytes # (A) 2.5 k/uL (1.0-4.8); Lymphocytes % (A) 41 %; MCHC 33.4 g/dL (31.0-37.0); MCV 92.8 fL (80.0-100.0); Mean Platelet Volume 8.5; Monocytes # (A) 0.3 k/uL (0-1.0); Monocytes % (A) 5 %; Neutrophils # (A) 3.1 k/uL (1.3-7.7); Neutrophils % (A) 50 %; Platelet Count 128 k/uL (150-450); RBC 4.79 m/uL (3.80-5.40); RDW 13.1 % (11.5-15.5); WBC 6.2 k/uL (3.8-10.6)
[2019-11-27 11:53] LABS: Potassium 4.5 mmol/L (3.5-5.1)
--- NOTE | 2019-11-27 11:54 | P.PN ---
Subjective Patient is admitted for diabetic mellitus which improved at this time patient is awaiting disposition to subacute rehabilitation patient had a C. diff testing that was negative. Patient diarrhea resolved but patient is complaining of streaks of blood in the stool will monitor for any more GI bleed patient probably has hemorrhoids. Patient blood sugars are fairly better today we'll discontinue D5 half-normal saline and we'll see how her sugars are. Constitutional: Denied any fatigue denied any fever. Cardio vascular: denied any chest pain, palpitations Gastrointestinal denied any nausea vomiting Pulmonary: Denied any shortness of breath cough Neurologic denied any new focal deficits All inpatient medications were reviewed and appropriate changes in these medications as dictated in the interval history and assessment and plan. Objective - Vital Signs Vital signs: Vital Signs Temp 97.3 F L 11/27/19 07:45 Pulse 75 11/27/19 07:45 Resp 18 11/27/19 07:45 BP 146/91 11/27/19 07:45 Pulse Ox 99 11/27/19 07:45 Intake & Output 11/26/19 11/27/19 11/27/19 18:59 06:59 18:59 Intake Total 480 450 Output Total 1900 1000 Balance -1420 -1000 450 Weight 65.771 kg 53.8 kg Intake: Oral 480 450 Output: Urine 1900 1000 Other: # Voids 1 0 - Exam PHYSICAL EXAMINATION: GENERAL: The patient is alert and oriented x3, not in any acute distress. Well developed, well nourished. Extremely hard of hearing HEENT: Pupils are round and equally reacting to light. EOMI. No scleral icterus. No conjunctival pallor. Normocephalic, atraumatic. No pharyngeal erythema. No thyromegaly. CARDIOVASCULAR: S1 and S2 present. No murmurs, rubs, or gallops. PULMONARY: Chest is clear to auscultation, no wheezing or crackles. ABDOMEN: Soft, nontender, nondistended, normoactive bowel sounds. No palpable organomegaly. MUSCULOSKELETAL: No joint swelling or deformity. EXTREMITIES: No cyanosis, clubbing, or pedal edema. NEUROLOGICAL: Gross neurological examination did not reveal any focal deficits. SKIN: No rashes. - Labs CBC & Chem 7: 11/27/19 11:09 11/26/19 06:45 Labs: Abnormal Lab Results - Last 24 Hours (Table) 11/26/19 11/26/19 11/26/19 Range/Units 16:35 16:48 17:12 Plt Count (150-450) k/uL POC Glucose (mg/dL) 57 L 65 L 267 H (75-99) mg/dL 11/26/19 11/26/19 11/27/19 Range/Units 20:07 20:43 06:08 Plt Count (150-450) k/uL POC Glucose (mg/dL) 60 L 71 L 102 H (75-99) mg/dL 11/27/19 Range/Units 11:09 Plt Count 128 L (150-450) k/uL POC Glucose (mg/dL) (75-99) mg/dL Microbiology - Last 24 Hours (Table) 11/26/19 08:45 Blood Culture - Preliminary Blood No Growth after 24 hours Assessment and Plan Plan: -Diarrhea: Patient's diarrhea resolved continue with Ceftin and metronidazole, possibility of mild hemorrhoidal bleed -Hypoglycemia due to poor Intake D5 half-normal saline will be discontinued and patient will be monitored for any more episodes of hypoglycemia -Chest pain probably musculoskeletal cardiology evaluated the patient ruled out acute current syndromes patient is getting an echocardiogram -Acute renal failure secondary to intravascular depletion resolved now with IV fluids -Chronic kidney disease stage III probably secondary to hypertensive nep hrosclerosis. Baseline creatinine around 1.2 -Hyperlipidemia -Continued nicotine use: Counseling was provided -DVT prophylaxis with heparin and GI prophylaxis with Protonix
--- NOTE | 2019-11-27 12:04 | ECHOF ---
Referral Reason:htn MEASUREMENTS -------- HEIGHT: 157.5 cm WEIGHT: 53.5 kg BP: 141/89 RVIDd: 3.3 cm (< 3.3) IVSd: 1.2 cm (0.6 - 1.1) LVIDd: 3.7 cm (3.9 - 5.3) LVPWd: 1.1 cm (0.6 - 1.1) IVSs: 1.5 cm LVIDs: 2.7 cm LVPWs: 1.6 cm LA Diam: 3.0 cm (2.7 - 3.8) LAESV Index (A-L): 26.42 ml/m Ao Diam: 2.9 cm (2.0 - 3.7) AV Cusp: 1.4 cm (1.5 - 2.6) MV EXCURSION: 12.148 mm (> 18.000) MV EF SLOPE: 18 mm/s (70 - 150) EPSS: 0.9 cm MV E Gabriel: 0.97 m/s MV DecT: 347 ms MV A Gabriel: 1.38 m/s MV E/A Ratio: 0.70 AV maxP.82 mmHg AV meanP.56 mmHg RAP: 5.00 mmHg RVSP: 21.80 mmHg FINDINGS -------- Sinus rhythm. This was a technically adequate study. The left ventricular size is normal. There is borderline concentric left ventricular hypertrophy. Overall left ventricular systolic function is normal with, an EF between 65 - 70 %. The right ventricle is mildly enlarged. Normal LA size by volume 22+/-6 ml/m2. The right atrium is normal in size. Eustachian valve seen in the right atrium (normal finding). Interatrial and interventricular septum intact. There is mild to moderate aortic valve sclerosis. There is mild aortic stenosis present. Peak/bettie n gradient across the Aortic Valve is 18.82mmHg / 11.56mmHg. The mitral valve leaflets are mildly thickened. Mild mitral annular calcification present. There is trace to mild mitral regurgitation. Mild tricuspid regurgitation present. Right ventricular systolic pressure is normal at < 35 mmHg. Trace/mild (physiologic) pulmonic regurgitation. The aortic root size is normal. Normal inferior vena cava with normal inspiratory collapse consistent with estimated right atrial pre ssure of 5 mmHg. There is no pericardial effusion. CONCLUSIONS -------- 1. Sinus rhythm. 2. This was a technically adequate study. 3. The left ventricular size is normal. 4. There is borderline concentric left ventricular hypertrophy. 5. Overall left ventricular systolic function is normal with, an EF between 65 - 70 %. 6. The right ventricle is mildly enlarged. 7. Normal LA size by volume 22+/-6 ml/m2. 8. The right atrium is normal in size. 9. Eustachian valve seen in the right atrium (normal finding). 10. Interatrial and interventricular septum intact. 11. There is mild to moderate aortic valve sclerosis. 12. There is mild aortic stenosis present. 13. Peak/mean gradient across the Aortic Valve is 18.82mmHg / 11.56mmHg. 14. The mitral valve leaflets are mildly thickened. 15. Mild mitral annular calcification present. 16. There is trace to mild mitral regurgitation. 17. Mild tricuspid regurgitation present. 18. Right ventricular systolic pressure is normal at < 35 mmHg. 19. Trace/mild (physiologic) pulmonic regurgitation. 20. The aortic root size is normal. 21. Normal inferior vena cava with normal inspiratory collapse consistent with estimated right atrial pressure of 5 mmHg. 22. There is no pericardial effusion. HOT WALKER: Marya Rhodes RDCS
[2019-11-27 12:17] LABS: Glucose,Whole Blood 92 mg/dL (75-99)
[2019-11-27] MEDS: DEXTROSE 5%-0.45% NACL 1,000 ML IV SCH (14:41)
[2019-11-27] MEDS ORDERED: PEG 3350-NA SULF,BICARB,CL/KCL 4,000 ML BOTTLE PO ONE (15:00)
[2019-11-27 16:57] LABS: Glucose,Whole Blood 107 mg/dL (75-99)
[2019-11-27] MEDS ORDERED: LIDOCAINE 1% (10MG/ML) FOR IV START INTRADERMA PRN (19:37)
[2019-11-27] MEDS ORDERED: LACTATED RINGERS 1,000 ML IV SCH (19:37)
[2019-11-27 21:12] LABS: Glucose,Whole Blood 141 mg/dL (75-99)
[2019-11-27] MEDS: MELATONIN 3 MG TABLET PO SCH (21:50)
[2019-11-27] MEDS: HYDROCORTISONE SUPPOSITORY 25 MG SUPP RECTAL SCH (21:50)
[2019-11-27] MEDS: ATORVASTATIN 20 MG TAB PO SCH (21:50)
--- NOTE | 2019-11-28 00:41 | CONS ---
CONSULTATION DATE OF DICTATION: 11/27/2019 REASON FOR CONSULTATION: Diarrhea. HISTORY OF PRESENT ILLNESS: The patient is a 78-year-old pleasant white female with history of chronic diarrhea for the last 2 months duration. She was just admitted to the hospital 2 weeks ago at which time she was in for a whole week and workup for chronic diarrhea and workup with stool studies was negative. She was treated empirically with antibiotics for infectious colitis and she was discharged home. Apparently she continued to have right lower quadrant abdominal pain and diarrhea with 4 to 5 loose watery bowel movements daily with no blood or mucus in the stool. The patient is extremely hard of hearing and hence communication is extremely difficult. She denies any blood or mucus in the stool. She reports she complains of some cramping lower abdominal pain. PAST MEDICAL HISTORY: Significant for diabetes mellitus, hypertension, hyperlipidemia. PAST SURGICAL HISTORY: None. No prior history of colonoscopy. MEDICATIONS AT HOME: Lipitor, melatonin, Risperdal, Ceftin, Flagyl, Zestril. ALLERGIES: Allergies to MORPHINE. SOCIAL HISTORY: Chronic smoker. No alcohol use. FAMILY HISTORY: Unremarkable. REVIEW OF SYSTEMS: CARDIOPULMONARY: No chest pain or shortness of breath. GENITOURINARY: No dysuria or hematuria. MUSCULOSKELETAL: Unremarkable. SKIN: Unremarkable. ENDOCRINE: Unremarkable. PSYCHIATRIC: Unremarkable. NEUROLOGY: Unremarkable except for severe hearing loss. ENT/VISION: Unremarkable. CONSTITUTIONAL: No recent weight loss. No fever, chills, night sweats. PHYSICAL EXAMINATION: She appears comfortable. No apparent distress. Vital signs are stable. Blood pressure 158/82, pulse rate 55, temperature 98.2. HEENT EXAMINATION: Unremarkable. Conjunctivae pink. Sclerae anicteric. Oral cavity no lesions. NECK: No JVD or lymph node enlargement. CHEST: Clear to auscultation. HEART: Regular rate and rhythm. ABDOMEN: Soft. It was nontender, nondistended. Bowel sounds are positive. No organomegaly. EXTREMITIES: No pedal edema. SKIN: No rashes. NEURO: She is alert, oriented to name and place. LABS: WBC 6.2, hemoglobin 14.9, platelets normal. Basic metabolic panel is within normal limits. Repeat stool studies for C difficile toxin is negative. Stool occult blood is negative. Basic metabolic panel is normal. BUN is 13, creatinine 1.47. IMPRESSION: Chronic diarrhea for the last several months duration, which has been progressively getting worse recently. She had hospitalization about 2 weeks ago for almost a week and was treated for infectious colitis with antibiotics with no help. She presents to the hospital back with diarrhea again. Never had a colonoscopy in the past. RECOMMENDATION: We will proceed with colonoscopy tomorrow. Discussed with the patient risks, benefits and complications of the procedure and she is agreeable to it. Thank you for this consultation. MMCHUYL / IJN: [id number] /
[2019-11-28 02:15] LABS: Glucose,Whole Blood 99 mg/dL (75-99)
[2019-11-28 06:15] LABS: Glucose,Whole Blood 100 mg/dL (75-99)
[2019-11-28 07:21] LABS: Basophils # (A) 0.1 k/uL (0-0.2); Basophils % (A) 1 %; Eosinophils # (A) 0.1 k/uL (0-0.7); Eosinophils % (A) 2 %; HCT 50.3 % (34.0-46.0); HGB 15.9 gm/dL (11.4-16.0); Lymphocytes # (A) 2.3 k/uL (1.0-4.8); Lymphocytes % (A) 40 %; MCH 29.2 pg (25.0-35.0); MCHC 31.5 g/dL (31.0-37.0); MCV 92.7 fL (80.0-100.0); Mean Platelet Volume 8.3; Monocytes # (A) 0.4 k/uL (0-1.0); Monocytes % (A) 7 %; Neutrophils # (A) 2.8 k/uL (1.3-7.7); Neutrophils % (A) 48 %; Platelet Count 125 k/uL (150-450); RBC 5.43 m/uL (3.80-5.40); RDW 13.1 % (11.5-15.5); WBC 5.8 k/uL (3.8-10.6)
[2019-11-28 07:48] LABS: Calcium 9.2 mg/dL (8.4-10.2)
[2019-11-28 08:04] LABS: Potassium 4.4 mmol/L (3.5-5.1)
[2019-11-28] MEDS: HYDROCORTISONE SUPPOSITORY 25 MG SUPP RECTAL SCH ×2 (08:12→20:15)
[2019-11-28] MEDS: metroNIDAZOLE 500 MG TAB PO SCH ×3 (08:42→20:15)
[2019-11-28] MEDS: risperiDONE 1 MG TAB PO SCH ×2 (08:42→20:15)
[2019-11-28] MEDS: PANTOPRAZOLE 40 MG TABLET PO SCH (08:43)
[2019-11-28] MEDS: HEPARIN SODIUM,PORCINE 5,000 UNIT/ML 1 ML VIAL SQ SCH ×2 (08:43→20:19)
[2019-11-28] MEDS: CEFDINIR 300 MG CAP PO SCH ×2 (08:43→20:15)
[2019-11-28] MEDS ORDERED: MAGNESIUM CITRATE 296 ML BOTTLE PO ONE (09:00)
[2019-11-28 11:32] LABS: Glucose,Whole Blood 151 mg/dL (75-99)
--- NOTE | 2019-11-28 11:57 | P.PN ---
Subjective Patient is admitted for diabetic mellitus which improved at this time patient is awaiting disposition to subacute rehabilitation patient had a C. diff testing that was negative. Patient diarrhea resolved but patient is complaining of streaks of blood in the stool will monitor for any more GI bleed patient probably has hemorrhoids. Patient blood sugars are fairly better today we'll discontinue D5 half-normal saline and we'll see how her sugars are. 11/28/2019 Patient blood sugars are better today patient is not on any D5. Patient will lead prior authorization apparently for discharge to subacute rehabilitation. Patient will undergo colonoscopy today Constitutional: Denied any fatigue denied any fever. Cardio vascular: denied any chest pain, palpitations Gastrointestinal denied any nausea vomiting Pulmonary: Denied any shortness of breath cough Neurologic denied any new focal deficits All inpatient medications were reviewed and appropriate changes in these medications as dictated in the interval history and assessment and plan. Objective - Vital Signs Vital signs: Vital Signs Temp 96.7 F L 11/28/19 07:00 Pulse 75 11/28/19 07:00 Resp 16 11/28/19 07:00 BP 159/80 11/28/19 07:00 Pulse Ox 98 11/28/19 07:00 Intake & Output 11/27/19 11/28/19 11/28/19 18:59 06:59 18:59 Intake Total 1775 2400 480 Output Total 2800 400 Balance -1025 2400 80 Intake: Intake, IV Titration 375 240 Amount Dextrose 5%-0.45% NaCl 1, 375 000 ml @ 75 mls/hr IV . [id number] TELLO Rx#:[id number] Lactated Ringers 1,000 ml 240 @ 20 mls/hr IV .Q24H TELLO Rx#:[id number] Oral 1400 2400 240 Output: Urine 2800 200 Stool 200 Other: Voiding Method Bedside Commode # Voids 2 2 1 # Bowel Movements 1 2 1 - Exam PHYSICAL EXAMINATION: GENERAL: The patient is alert and oriented x3, not in any acute distress. Well developed, well nourished. Extremely hard of hearing HEENT: Pupils are round and equally reacting to light. EOMI. No scleral icterus. No conjunctival pallor. Normocephalic, atraumatic. No pharyngeal erythema. No thyromegaly. CARDIOVASCULAR: S1 and S2 present. No murmurs, rubs, or gallops. PULMONARY: Chest is clear to auscultation, no wheezing or crackles. ABDOMEN: Soft, nontender, nondistended, normoactive bowel sounds. No palpable organomegaly. MUSCULOSKELETAL: No joint swelling or deformity. EXTREMITIES: No cyanosis, clubbing, or pedal edema. NEUROLOGICAL: Gross neurological examination did not reveal any focal deficits. SKIN: No rashes. - Labs CBC & Chem 7: 11/28/19 06:50 11/28/19 06:50 Labs: Abnormal Lab Results - Last 24 Hours (Table) 11/27/19 11/27/19 11/27/19 Range/Units 11:09 16:51 21:11 RBC (3.80-5.40) m/uL Hct (34.0-46.0) % Plt Count (150-450) k/uL Chloride 108 H (98-107) mmol/L Carbon Dioxide 20 L (22-30) mmol/L BUN (7-17) mg/dL Creatinine 1.16 H (0.52-1.04) mg/dL Glucose 117 H (74-99) mg/dL POC Glucose (mg/dL) 107 H 141 H (75-99) mg/dL 11/28/19 11/28/19 11/28/19 Range/Units 06:13 06:50 06:50 RBC 5.43 H (3.80-5.40) m/uL Hct 50.3 H (34.0-46.0) % Plt Count 125 L (150-450) k/uL Chloride 108 H (98-107) mmol/L Carbon Dioxide 21 L (22-30) mmol/L BUN 5 L (7-17) mg/dL Creatinine 1.08 H (0.52-1.04) mg/dL Glucose (74-99) mg/dL POC Glucose (mg/dL) 100 H (75-99) mg/dL 11/28/19 Range/Units 11:30 RBC (3.80-5.40) m/uL Hct (34.0-46.0) % Plt Count (150-450) k/uL Chloride (98-107) mmol/L Carbon Dioxide (22-30) mmol/L BUN (7-17) mg/dL Creatinine (0.52-1.04) mg/dL Glucose (74-99) mg/dL POC Glucose (mg/dL) 151 H (75-99) mg/dL Microbiology - Last 24 Hours (Table) 11/26/19 08:45 Blood Culture - Preliminary Blood No Growth after 48 hours Assessment and Plan Plan: -Diarrhea: Patient's diarrhea resolved continue with Ceftin and metronidazole, possibility of mild hemorrhoidal bleed, patient is on on the sole patient is going for colonoscopy today -Hypoglycemia resolved. Probably secondary to poor by mouth intake -Chest pain probably musculoskeletal cardiology evaluated the patient ruled out acute current syndromes patient is getting an echocardiogram -Acute renal failure secondary to intravascular depletion improved with IV fluids discontinue IV fluids -Chronic kidney disease stage III probably secondary to hypertensive nephrosclerosis. Her creatinine is better than her baseline of 1.2 -Hyperlipidemia -Continued nicotine use: Counseling was provided -DVT prophylaxis with heparin and GI prophylaxis with Protonix
--- NOTE | 2019-11-28 12:26 | PN ---
PROGRESS NOTE Mrs. Stafford is a 78-year-old female who presented with symptoms of abdominal discomfort and diarrhea. She is status post coronary artery bypass grafting and what appears to be carotid endarterectomy. The history is very limited because of her hearing deficiency. She was evaluated by Dr. Moctezuma and scheduled to undergo endoscopy. Hemodynamically, she is stable. She underwent an echocardiogram yesterday that revealed a preserved left ventricular size and systolic function with mild tricuspid and mitral regurgitation. She continues to be at this time on Lipitor 20 mg daily, Protonix, Risperdal. IMPRESSION: 1. Abdominal discomfort and diarrhea. Workup in progress. 2. History of coronary artery disease, stable. 3. Chronic kidney disease. 4. Hypertension. 5. Hyperlipidemia. RECOMMENDATION: From the cardiac standpoint, she is stable. I see no indication for further cardiac workup. Will see her on as-needed basis. Please feel free to call us for any question. MMODL / IJN: [id number] /
[2019-11-28] MEDS ORDERED: IV FLUID CONTINUATION 1,000 ML IV ONE (13:00)
[2019-11-28] MEDS ORDERED: PROPOFOL 10 MG/ML 20 ML VIAL IV ONE (13:00)
--- NOTE | 2019-11-28 13:34 | P.PCN ---
Date of Procedure: 11/28/19 Procedure(s) Performed: BRIEF HISTORY: Patient is a 78-year-old pleasant white female scheduled for an elective colonoscopy as a part of evaluation of chronic diarrhea for the last 2 months duration. She has not was anywhere from 5-6 a day still loose to watery in consistency. Stool studies were negative. She was empirically treated with antibiotics with no help. She is hence scheduled for colonoscopy to evaluate further. PROCEDURE PERFORMED: Colonoscopy with random biopsy. PREOPERATIVE DIAGNOSIS:. Chronic diarrhea of 2 months duration IV sedation per Anesthesia. PROCEDURE: After informed consent was obtained, the patient, was brought into the endoscopy unit. IV sedation was administered by Anesthesia under continuous monitoring. Digital rectal examination was normal. Initially the Olympus CF-160 flexible video colonoscope was then inserted in the rectum, gradually advanced into the cecum without any difficulty. Careful examination was performed as the scope was gradually being withdrawn. Ileocecal valve and the appendiceal orifice were visualized and appeared normal. Prep was excellent. Mucosa of the cecum, ascending colon, transverse colon, descending colon, sigmoid colon, and rectum appeared normal. Random biopsies were done from ascending and descending colon to rule out microscopic/collagenous colitis. Diffuse diverticulosis noted throughout the colon. There was a 5 mm polyp noted in the rectum that was removed by cold Retroflexion was performed in the rectum and no lesions were seen. The patient tolerated the procedure well. IMPRESSION: 5 mm proximal rectal polyp status post removal by cold biopsy Diffuse scattered diverticulosis No evidence of colitis RECOMMENDATIONS: Findings of this examination were discussed with the patient. She was advised to follow with the biopsy results. In the meantime she will be started on loperamide 2 tablets 4 times daily and advance diet as tolerated.
[2019-11-28] MEDS: LOPERAMIDE 2 MG CAP PO SCH ×3 (14:04→22:00)
[2019-11-28 16:44] LABS: Glucose,Whole Blood 194 mg/dL (75-99)
[2019-11-28] MEDS: INSULIN ASPART (NovoLOG) 100 UNIT/ML VIAL SQ SCH ×2 (17:22→20:18)
[2019-11-28 20:10] LABS: Glucose,Whole Blood 135 mg/dL (75-99)
[2019-11-28] MEDS: ATORVASTATIN 20 MG TAB PO SCH (20:15)
[2019-11-28] MEDS: MELATONIN 3 MG TABLET PO SCH (20:15)
[2019-11-29 06:14] LABS: Glucose,Whole Blood 113 mg/dL (75-99)
[2019-11-29] MEDS: INSULIN ASPART (NovoLOG) 100 UNIT/ML VIAL SQ SCH ×2 (06:42→11:59)
[2019-11-29 09:25] VITALS: BP 129/76; PULSE 87; RESP 16; TEMP 98.3
[2019-11-29] MEDS: CEFDINIR 300 MG CAP PO SCH (09:29)
[2019-11-29] MEDS: metroNIDAZOLE 500 MG TAB PO SCH (09:30)
[2019-11-29] MEDS: HYDROCORTISONE SUPPOSITORY 25 MG SUPP RECTAL SCH (09:30)
[2019-11-29] MEDS: HEPARIN SODIUM,PORCINE 5,000 UNIT/ML 1 ML VIAL SQ SCH (09:30)
[2019-11-29] MEDS: PANTOPRAZOLE 40 MG TABLET PO SCH (09:30)
[2019-11-29] MEDS: LOPERAMIDE 2 MG CAP PO SCH ×2 (09:30→12:40)
[2019-11-29] MEDS: risperiDONE 1 MG TAB PO SCH (09:30)
--- NOTE | 2019-11-29 11:09 | P.DS ---
Providers Date of admission: 11/26/19 09:07 Expected date of discharge: 11/29/19 Attending physician: Jalyn Alicia Consults: 11/26/19 08:48 Consult Physician Stat Consulting Provider: Jaime Ramos Consult Reason/Comments: Chest pain, hx CAD Do you want consulting provider notified?: Yes Consult Physician Stat Consulting Provider: Doris Moctezuma Consult Reason/Comments: Persistent diarrhea, abdominal pain Do you want consulting provider notified?: Yes Primary care physician: [facility] Course: Final diagnosis -Diarrhea: Patient's diarrhea resolved -Hypoglycemia resolved. Probably secondary to poor by mouth intake -Chest pain probably musculoskeletal cardiology evaluated the patient ruled out acute current syndromes -Acute renal failure secondary to intravascular depletion improved -Chronic kidney disease stage III probably secondary to hypertensive nephrosclerosis -Hyperlipidemia -Continued nicotine use: Counseling was provided -DVT prophylaxis -GI prophylaxis with Protonix Discharge disposition Patient is being discharged in a stable condition with guarded prognosis to [facility]. Patient will follow-up with Dr. Nick in the outpatient setting. Patient will continue with a short course of oral antibiotics in the form of Flagyl 3 times daily for the next 4 days and then may discontinue. Total time taken is 35 minutes. History of present illness This is a 78-year-old female who was recently admitted with diabetes mellitus and was found to have diarrhea with blood noted in the stool. C. diff testing was negative. Patient was seen and evaluated by GI and underwent endoscopy with biopsies taken. She will follow-up with GI in the outpatient setting to discuss results. Patient will continue on loperamide 2 tablets 4 times daily and advance diet slowly as tolerated. Currently no reports of chest pain, shortness of breath, or palpitations. Patient is afebrile. No reports of nausea or vomiting and patient is tolerating diet. Patient is currently on a consistent carb diet and will continue with monitoring blood sugars before meals at bedtime and treat accordingly with sliding scale. Patient will be going to [facility] today. Insurance authorization has been obtained. On exam vital signs are stable. Temp is 98.3F, pulse is 87, respirations are 16, blood pressure is 129/76, oxygen saturation is 98% on room air. Cardio S1, S2 are present. Respiratory system shows clear to auscultation. Abdomen is soft and nontender. Nervous system shows no focal deficits Please refer to medication reconciliation sheet for a list of medications. Patient Condition at Discharge: Stable Plan - Discharge Summary Discharge Rx Participant: No New Discharge Prescriptions: New Hydrocortisone Suppository [Anusol-Hc] 25 mg RECTAL BID supp metroNIDAZOLE [Flagyl] 500 mg PO TID #14 tab risperiDONE [RisperDAL] 1.5 mg PO BID #20 tab Continue Atorvastatin [Lipitor] 20 mg PO HS Melatonin 3 mg PO HS risperiDONE 0.5 mg PO BID risperiDONE [RisperDAL] 1 mg PO BID Lisinopril [Zestril] 20 mg PO DAILY #30 tab Glimepiride [Amaryl] 2 mg PO W/BRKFST Discharge Medication List Atorvastatin [Lipitor] 20 mg PO HS 11/12/19 [History] Melatonin 3 mg PO HS 11/12/19 [History] risperiDONE 0.5 mg PO BID 11/12/19 [History] risperiDONE [RisperDAL] 1 mg PO BID 11/12/19 [History] Lisinopril [Zestril] 20 mg PO DAILY #30 tab 11/16/19 [Rx] Glimepiride [Amaryl] 2 mg PO W/BRKFST 11/26/19 [History] Hydrocortisone Suppository [Anusol-Hc] 25 mg RECTAL BID supp 11/28/19 [Rx] metroNIDAZOLE [Flagyl] 500 mg PO TID #14 tab 11/28/19 [Rx] risperiDONE [RisperDAL] 1.5 mg PO BID #20 tab 11/28/19 [Rx] Follow up Appointment(s)/Referral(s): Oscar Nick MD [STAFF PHYSICIAN] - 1-2 Days Annalee Patrick MD [Primary Care Provider] - 1-2 days Patient Instructions/Handouts: Diverticulitis (DC), Diverticulitis Diet (DC) Activity/Diet/Wound Care/Special Instructions: CRISTINA Discharge Disposition: TRANSFER TO SNF/F
[2019-11-29 12:02] LABS: Glucose,Whole Blood 121 mg/dL (75-99)
--- NOTE | 2019-11-30 03:45 | PN ---
PROGRESS NOTE DATE OF DICTATION: 11/29/2019 The patient is a 78-year-old pleasant white female admitted to the hospital with severe diarrhea on and off for the last 2 weeks duration. She underwent a colonoscopy yesterday that was unremarkable. Biopsies are still pending. She was started on Imodium 1 tablet 4 times daily and her diarrhea has completely resolved. In fact, she had only one bowel movement today. PHYSICAL EXAMINATION: She appears comfortable, no apparent distress. Vital signs are stable. Blood pressure 129/76, pulse rate 87, temperature 98.3. HEENT EXAMINATION: Unremarkable. Conjunctivae pink. Sclerae anicteric. Oral cavity no lesions. NECK: No JVD or lymph node enlargement. CHEST: Clear to auscultation. HEART: Regular rate and rhythm. ABDOMEN: Soft. Bowel sounds are positive. No organomegaly. EXTREMITIES: No pedal edema. SKIN: No rashes. NEUROLOGIC: Alert and oriented x3. No focal deficits. LABS: WBC 5.8, hemoglobin 15.9, platelets 125. Basic metabolic panel is within normal limits. Colon with biopsies are still pending. IMPRESSION: Chronic diarrhea for the last few weeks duration status post colonoscopy yesterday that was unremarkable other than small colon polyp. Random biopsies were done which are still pending at the time of this dictation. Presently on Imodium 1 tablet 4 times daily and her symptoms are significantly improved. RECOMMENDATIONS: 1. Continue Imodium 1 tablet 4 times daily. 2. High-fiber diet. 3. She can be discharged home today with an outpatient followup in 2 weeks. Thank you for this consultation. MMODL / IJN: [id number] /
== END 2019-11-29 13:56 ==
LOC: EC 06:07 → INTOOBSV 09:07 → 3SCARD 09:07 → UNDODISIN 11-29 13:56
PROVIDERS: ADMIT Hospitalist; ATTEND Hospitalist
DX: K52.9 Noninfective gastroenteritis and colitis, unspecified (principal); D12.8 Benign neoplasm of rectum; K57.31 Diverticulosis of large intestine without perforation or abscess with bleeding; E11.649 Type 2 diabetes mellitus with hypoglycemia without coma; R07.89 Other chest pain; N17.9 Acute kidney failure, unspecified; E87.8 Other disorders of electrolyte and fluid balance, not elsewhere classified; I12.9 Hypertensive chronic kidney disease with stage 1 through stage 4 chronic kidney disease, or unspecified chronic kidney disease; E11.22 Type 2 diabetes mellitus with diabetic chronic kidney disease; N18.3 Chronic kidney disease, stage 3 (moderate); H91.90 Unspecified hearing loss, unspecified ear; E78.5 Hyperlipidemia, unspecified; R94.31 Abnormal electrocardiogram [ECG] [EKG]; J44.9 Chronic obstructive pulmonary disease, unspecified; R91.8 Other nonspecific abnormal finding of lung field; M41.9 Scoliosis, unspecified; I45.89 Other specified conduction disorders; I25.10 Atherosclerotic heart disease of native coronary artery without angina pectoris; E87.2 Acidosis; I08.1 Rheumatic disorders of both mitral and tricuspid valves; F17.200 Nicotine dependence, unspecified, uncomplicated; Z03.818 Encounter for observation for suspected exposure to other biological agents ruled out; Z71.6 Tobacco abuse counseling; Z87.440 Personal history of urinary (tract) infections; Z95.1 Presence of aortocoronary bypass graft; Z79.899 Other long term (current) drug therapy; Z88.5 Allergy status to narcotic agent
CPT/HCPCS: 96361 ×2; 96375; 96374; 99285; 36415; 93005; 93306; 97116; 97162; 97535; 97166; 88305; 83880; 80053; 80048 ×2; 83690; 83735; 84484; 85025 ×3; 85610; 85730; 82272; 81001; 87040; 87324; 83036; 71046; 74018; 45380; G0378 ×4; U0003; S4990; J1644 ×4; J1170; J2704; C9113

== ENCOUNTER 2020-07-11 15:44 | Emergency (ER) | payer MEDICARE ==
[2020-07-11 15:55] VITALS: TEMP 97.9
--- NOTE | 2020-07-11 16:13 | ED ---
Fall HPI - General Source: patient, EMS, RN notes reviewed Mode of arrival: EMS Limitations: physical limitation <Mamadou Nicole - Last Filed: 07/11/20 18:36> <Cesar Munoz - Last Filed: 07/11/20 18:52> - General Chief Complaint: Fall Stated Complaint: Fall Time Seen by Provider: 07/11/20 15:48 - History of Present Illness Initial Comments: This is a 79-year-old female presents emergency department via EMS chief complaint of a fall. Patient reports she fell around 2 PM today. Patient was found on the floor by counseling for aging. Patient states that she had no head injury but was placed in c-collar by EMS. Patient complains of buttocks, low back pain. Patient denies any chest pain or shortness breath are the usual. Patient is a very heavy smoker history of COPD. Patient denies any nausea vomiting diarrhea constipation or fevers or chills patient offers no complaints. (Mamadou Nicole) - Related Data Home Medications Medication Instructions Recorded Confirmed Atorvastatin [Lipitor] 20 mg PO HS 11/12/19 11/26/19 Melatonin 3 mg PO HS 11/12/19 11/26/19 risperiDONE 0.5 mg PO BID 11/12/19 11/26/19 risperiDONE [RisperDAL] 1 mg PO BID 11/12/19 11/26/19 Glimepiride [Amaryl] 2 mg PO W/BRKFST 11/26/19 11/26/19 Previous Rx's Medication Instructions Recorded lisinopriL [Zestril] 20 mg PO DAILY #30 tab 11/16/19 Hydrocortisone Suppository 25 mg RECTAL BID supp 11/28/19 [Anusol-Hc] metroNIDAZOLE [Flagyl] 500 mg PO TID #14 tab 11/28/19 risperiDONE [RisperDAL] 1.5 mg PO BID #20 tab 11/28/19 Acetaminophen Tab [Tylenol] 650 mg PO Q6HR PRN tab 11/29/19 INSULIN ASPART (NovoLOG) [NovoLOG 0 unit SQ ACHS vial 11/29/19 (formulary)] Loperamide [Imodium] 2 mg PO QID 14 Days #56 cap 11/29/19 Allergies Allergy/AdvReac Type Severity Reaction Status Date / Time morphine Allergy Rash/Hives Verified 07/11/20 18:07 Review of Systems ROS Other: All systems not noted in ROS Statement are negative. <Mamadou Nicole - Last Filed: 07/11/20 18:36> ROS Other: All systems not noted in ROS Statement are negative. <Cesar Munoz - Last Filed: 07/11/20 18:52> ROS Statement: Those systems with pertinent positive or pertinent negative responses have been documented in the HPI. Past Medical History Past Medical History: Diabetes Mellitus, Hyperlipidemia, Hypertension History of Any Multi-Drug Resistant Organisms: None Reported Past Surgical History: No Surgical Hx Reported Past Anesthesia/Blood Transfusion Reactions: No Reported Reaction Past Psychological History: No Psychological Hx Reported Past Alcohol Use History: None Reported Past Drug Use History: None Reported - Past Family History Father Family Medical History: No Reported History Mother Family Medical History: No Reported History <Mamadou Nicole - Last Filed: 07/11/20 18:36> General Exam Limitations: no limitations, physical limitation General appearance: alert, in no apparent distress, cachectic Head exam: Present: atraumatic, normocephalic, normal inspection Eye exam: Present: normal appearance, PERRL, EOMI. Absent: scleral icterus, conjunctival injection, periorbital swelling ENT exam: Present: normal exam, normal oropharynx, mucous membranes moist Neck exam: Present: normal inspection, full ROM. Absent: tenderness, meningismus, lymphadenopathy Respiratory exam: Present: wheezes. Absent: normal lung sounds bilaterally, respiratory distress, rales, rhonchi, stridor Cardiovascular Exam: Present: regular rate, normal rhythm, normal heart sounds. Absent: systolic murmur, diastolic murmur, rubs, gallop, clicks GI/Abdominal exam: Present: soft, normal bowel sounds. Absent: distended, tenderness, guarding, rebound, rigid Extremities exam: Present: other (Tenderness left hip, buttocks region, remaining extremity exam within normal limits) Back exam: Present: normal inspection, tenderness, paraspinal tenderness. Absent: full ROM, vertebral tenderness Neurological exam: Present: alert, oriented X3, CN II-XII intact, reflexes normal. Absent: motor sensory deficit Skin exam: Present: warm, dry, intact, normal color. Absent: rash <Mamadou Nicole - Last Filed: 07/11/20 18:36> Course <Cesar Munoz - Last Filed: 07/11/20 18:52> Vital Signs 07/11/20 15:47 Temperature 97.9 F Pulse Rate 108 H Respiratory 20 Rate Blood Pressure 132/93 O2 Sat by Pulse 99 Oximetry - Reevaluation(s) Reevaluation #1: 07/11/20 18:52 PA supervision: I did personally evaluate the patient patient came in after a fall. No definite focal findings. Imaging shows evidence of a old compression nothing that appears to be acute at this time. Patient will be discharged back to home. I do agree with the assessment and plan. (Cesar Munoz) Medical Decision Making <Mamadou Nicole - Last Filed: 07/11/20 18:36> - Medical Decision Making Imaging was reviewed there is CT of the brain and C-spine show several chronic degenerative changes. There is concern about possible mastoiditis though she has no tenderness over this region. X-ray of the back and pelvis reviewed questionable 10% to go fracture she has no localized tenderness over this area and is felt more likely chronic though patient will follow-up with on-call orthopedics back. Patient was able to ambulate in the emergency Department. She has no red flag symptoms. We did contact son in which the nurse had a lengthy discussion with the son states this is ongoing better with her and states that they looked at long-term facility so she is resistant. Patient was offered admission patient prefers to go home. Patient will be picked up by son at this time. We did discuss return parameters. (Mamadou Nicole) Disposition Is patient prescribed a controlled substance at d/c from ED?: No Time of Disposition: 18:38 <Mamadou Nicole - Last Filed: 07/11/20 18:36> <Cesar Munoz - Last Filed: 07/11/20 18:52> Clinical Impression: Fall, Buttock pain, Coccyx contusion, Back pain Disposition: HOME SELF-CARE Condition: Stable Instructions (If sedation given, give patient instructions): Fall Prevention (ED) Additional Instructions: Please follow up with primary care physician, orthopedics and discuss long-term care.Please return to the Emergency Department if symptoms worsen or any other concerns. Referrals: None,Stated [Primary Care Provider] - 1-2 days Jethro Patton, [Doctor of Osteopathic Medicine] - 1-2 days
--- NOTE | 2020-07-11 16:33 | CT ---
EXAMINATION TYPE: CT brain brent san DATE OF EXAM: 07/11/2020 COMPARISON: None HISTORY: 79-year-old female confusion, AMS, fall CT DLP: 1402.2 mGycm Automated exposure control for dose reduction was used. Technique: Examination of the head was done in axial plane without intravenous contrast. Coronal and sagittal reconstructions performed. CT of the cervical spine was obtained in axial plane without intravenous injection of contrast mater ial. Coronal and sagittal reformatted images were obtained from the axial views for evaluation of f ractures, spinal alignment and canal. FINDINGS: Head: There is no evidence of acute intracranial hemorrhage, acute ischemic changes, mass, mass-effect, or extra-axial fluid collection. There is no effacement of cerebral sulci or basal subarachnoid cister ns. There is no hydrocephalus. There is no midline shift. Marin-white matter distinction is preserv ed. There is opacification of the right mastoid air cells and right middle ear cavity. Paranasal sinuses are well pneumatized. Orbits and globes are intact. Prominent skull base artifact affecting the inferior cerebellum. This region is largely nondiagnostic . Some encephalomalacia in the anterior right parietal lobe and moderate to severe patchy and confluent white matter hypodensities in both cerebral hemispheres. Cervical spine: 5 mm spiculated right upper lobe nodule and mild emphysema. Postsurgical change of C3-C5 vertebral body fusion. There is fixed grade 1 retrolisthesis at the fuse d C3-C4 level. Grade 1 anterolisthesis at C2-C3, T1-T2, and T2-T3. Advanced hypertrophic facet and uncovertebral joint arthropathy throughout. There is a central disc protrusion at C5-C6 which may cause mild to moderate narrowing of the spinal canal. Additional discussed by complex at C6/C7 may also contribute to mild spinal canal stenosis. Moderate bilateral neural foraminal stenoses at C5-C6 and moderate to severe on the right at C6-C7. No acute fracture of the cervical spine. Sagittal and coronal reformatted images confirm above findings. COMBINED IMPRESSION: 1. Small areas of encephalomalacia anterior right frontal lobe suggest regions of prior infarct. Ther e is moderate to severe wording of chronic small vessel ischemic disease. No acute intracranial abno rmality seen. If concern for subtle acute ischemia, MRI can be performed. 2. Opacification of the right mastoid air cells and right middle ear cavity. Correlate for otomastoid itis. 3. Emphysema in the visualized upper lungs with a spiculated 5 mm right upper lobe nodule. Recommend 3 month follow-up CT chest to exclude an early lung cancer here. NOTE THAT THE PATIENT SHOULD NOT BE LOST TO FOLLOW-UP. 4. Prior cervical fusion from C3 through C5 levels. Degenerative anterolistheses at C2-C3, T1-T2, and T2-T3. Spondylotic change as outlined above. No acute fracture of the cervical spine.
--- NOTE | 2020-07-11 17:24 | XR ---
EXAMINATION TYPE: XR lumbar spine 2 or 3V DATE OF EXAM: 07/11/2020 COMPARISON: CT scan 11/12/2019 HISTORY: Back pain TECHNIQUE: 3 views FINDINGS: There is lumbar dextroscoliosis. There is multilevel degenerative disc changes. There is os teopenia. There is slight loss of height of L3 and L2 vertebra up to 10%. Sacroiliac joints are intac t. There is extensive vascular calcification. IMPRESSION: Spondylotic changes. Minimal compression deformities.. No acute fracture seen.
--- NOTE | 2020-07-11 17:29 | XR ---
EXAMINATION TYPE: XR pelvis AP view DATE OF EXAM: 07/11/2020 COMPARISON: NONE HISTORY: Pain TECHNIQUE: Single view FINDINGS: The pelvic ring appears intact. Proximal femurs are intact. Hip joint spaces are fairly nor mal. There is vascular calcification. Sacroiliac joints are intact. IMPRESSION: No acute abnormality of the pelvis.
[2020-07-11 18:58] VITALS: BP 129/85; PULSE 87; RESP 19
== END 2020-07-11 19:53 | disposition home or self-care (01) ==
LOC: EC 15:44
DX: S30.0XXA Contusion of lower back and pelvis, initial encounter (principal); M47.816 Spondylosis without myelopathy or radiculopathy, lumbar region; E11.9 Type 2 diabetes mellitus without complications; E78.5 Hyperlipidemia, unspecified; Z79.890 Hormone replacement therapy; Z79.899 Other long term (current) drug therapy; Z79.84 Long term (current) use of oral hypoglycemic drugs; Z88.5 Allergy status to narcotic agent; W19.XXXA Unspecified fall, initial encounter; Y92.009 Unspecified place in unspecified non-institutional (private) residence as the place of occurrence of the external cause
CPT/HCPCS: 70450; 72100; 72125; 72170; 99284